=== PATIENT | male | born 1975 | race Caucasian/White ===

== ENCOUNTER 2017-09-01 08:28 | Inpatient (IN) | payer OTHER ==
[~2017-09-01] VITALS: Ht 188 cm; Wt 117.5 kg
[~2017-09-01 08:28] MED LIST: Levaquin500 MG PO
[2017-09-01 09:49] LABS: BASOPHILS PERCENT AUTO 1 % (0-2); EOSINOPHILS PERCENT AUTO 2 % (0-6); Hematocrit 47.3 % (37.0-53.0); Hemoglobin 16.3 g/dL (13.5-17.5); IMMATURE GRAN ABSOLUTE AUTO 0.06 K/mm3 (0.00-0.10); IMMATURE GRAN PERCENT AUTO 1 % (0-1); LYMPHOCYTES ABSOLUTE AUTO 3.61 K/mm3 (0.84-5.20); LYMPHOCYTES PERCENT AUTO 29 % (21-46); MONOCYTES ABSOLUTE AUTO 1.39 K/mm3 (0.16-1.47); MONOCYTES PERCENT AUTO 11 % (4-13); Mean Corpuscular HGB 30.2 pg (26.0-34.0); Mean Corpuscular HGB Conc 34.5 g/dL (31.5-36.5); Mean Corpuscular Volume 88 fL (80-100); Mean Platelet Volume 11.2 fL (9.1-12.4); NEUTROPHILS ABSOLUTE AUTO 7.06 K/mm3 (1.96-9.15); NEUTROPHILS PERCENT AUTO 56 % (41-73); Platelet Count 354 K/mm3 (150-400); RDW Coefficient Variation 13.1 % (11.7-14.2); RDW Standard Deviation 41.9 fL (35.1-46.3); White Blood Cell Count 12.52 K/mm3 (4.00-11.30)
[2017-09-01 10:00] LABS: International Normalized Ratio 1.07; Prothrombin Time Results 11.1 Sec (9.7-11.5)
[2017-09-01 10:07] LABS: Alanine Aminotransfer (ALT/SGP 28 U/L (12-78); Albumin, Blood 4.1 g/dL (3.4-5.0); Albumin/Globulin Ratio 1.2 (0.8-1.8); Alk Phos 57 U/L (50-136); Anion Gap 10 mmol/L (6-16); Aspartate Aminotrans (AST/SGOT 29 U/L (12-37); Bilirubin, Total 1.5 mg/dL (0.1-1.0); Blood Urea Nitrogen 14 mg/dL (8-24); Bun/Creatinine Ratio 14.2 (12.0-20.0); CO2, Blood 22 mmol/L (21-32); Calcium, Blood 9.1 mg/dL (8.5-10.1); Chloride, Blood 105 mmol/L (98-108); Creatinine, Blood 0.98 mg/dL (0.60-1.20); Globulin, Blood 3.4 g/dL (2.2-4.0); Glomerular Filtration Rate >60 (60-); Glucose, Blood 113 mg/dL (70-99); Potassium, Blood 3.6 mmol/L (3.5-5.5); Sodium, Blood 137 mmol/L (136-145); Total Protein, Blood 7.5 g/dL (6.4-8.2)
[2017-09-01 13:09] LABS: U Amphetamine Screen Not Detected; U Barbituate Screen Not Detected; U Benzodiazapine Screen Not Detected; U Buprenorphine Screen Not Detected; U Cannabinoids Screen Not Detected; U Cocaine Screen Not Detected; U Methadone Screen Not Detected; U Methamphetamine Screen DETECTED; U Opiates Screen Not Detected; U Oxycodone Screen Not Detected; U Phencyclidine Screen Not Detected; U Propoxyphene Screen Not Detected
[2017-09-01 13:12] LABS: PCO2 Arterial 44.2 mmHg (35-45); PO2 Arterial 124 mmHg (80-100); pH Blood Arterial 7.35 (7.35-7.45)
[2017-09-02 04:28] LABS: BASOPHILS ABSOLUTE AUTO 0.03 K/mm3 (0.00-0.23); BASOPHILS PERCENT AUTO 0 % (0-2); EOSINOPHILS ABSOLUTE AUTO 0.08 K/mm3 (0.00-0.68); EOSINOPHILS PERCENT AUTO 1 % (0-6); Hematocrit 43.6 % (37.0-53.0); Hemoglobin 14.7 g/dL (13.5-17.5); IMMATURE GRAN ABSOLUTE AUTO 0.05 K/mm3 (0.00-0.10); IMMATURE GRAN PERCENT AUTO 0 % (0-1); LYMPHOCYTES ABSOLUTE AUTO 1.12 K/mm3 (0.84-5.20); LYMPHOCYTES PERCENT AUTO 7 % (21-46); MONOCYTES ABSOLUTE AUTO 1.33 K/mm3 (0.16-1.47); MONOCYTES PERCENT AUTO 9 % (4-13); Mean Corpuscular HGB 29.9 pg (26.0-34.0); Mean Corpuscular HGB Conc 33.7 g/dL (31.5-36.5); Mean Corpuscular Volume 89 fL (80-100); Mean Platelet Volume 10.3 fL (9.1-12.4); NEUTROPHILS ABSOLUTE AUTO 12.56 K/mm3 (1.96-9.15); NEUTROPHILS PERCENT AUTO 83 % (41-73); Platelet Count 319 K/mm3 (150-400); RDW Coefficient Variation 13.3 % (11.7-14.2); RDW Standard Deviation 43.3 fL (35.1-46.3); Red Blood Cell Count 4.91 M/mm3 (4.30-5.90); White Blood Cell Count 15.17 K/mm3 (4.00-11.30)
[2017-09-02 04:45] LABS: Anion Gap 6 mmol/L (6-16); Blood Urea Nitrogen 10 mg/dL (8-24); CO2, Blood 24 mmol/L (21-32); Calcium, Blood 8.3 mg/dL (8.5-10.1); Chloride, Blood 109 mmol/L (98-108); Creatinine, Blood 1.11 mg/dL (0.60-1.20); Glomerular Filtration Rate >60 (60-); Glucose, Blood 123 mg/dL (70-99); Magnesium, Blood 2.1 mg/dL (1.6-2.4); Phosphorus, Blood 2.6 mg/dL (2.5-4.9); Potassium, Blood 4.2 mmol/L (3.5-5.5); Sodium, Blood 139 mmol/L (136-145)
[2017-09-02 05:33] LABS: PCO2 Arterial 33.6 mmHg (35-45); PO2 Arterial 57.2 mmHg (80-100); pH Blood Arterial 7.43 (7.35-7.45)
[2017-09-03 04:23] LABS: International Normalized Ratio 1.07; Prothrombin Time Results 11.2 Sec (9.7-11.5)
[2017-09-03 10:11] LABS: U Amphetamine Screen Not Detected; U Barbituate Screen Not Detected; U Benzodiazapine Screen DETECTED; U Buprenorphine Screen Not Detected; U Cannabinoids Screen Not Detected; U Cocaine Screen Not Detected; U Methadone Screen Not Detected; U Methamphetamine Screen Not Detected; U Opiates Screen Not Detected; U Oxycodone Screen Not Detected; U Phencyclidine Screen Not Detected; U Propoxyphene Screen Not Detected
[2017-09-03] MEDS ORDERED: ASPI325 PO (10:41)
[2017-09-03] MEDS ORDERED: CLOP75 PO (10:42)
[2017-09-03] MEDS ORDERED: ATOR40TA PO (10:42)
[2017-09-03] MEDS ORDERED: Lisinopril2.5 MG PO (10:44)
[2017-09-03] MEDS ORDERED: METO25 PO (10:45)
[2017-09-03] MEDS ORDERED: XARELTO20 MG PO (10:46)
[2017-09-10 11:08] LABS: 7-AMINOCLONAZEPAM Negative (.); ALPRAZOLAM Negative (.); BENZODIAZEPINES CONFIRM Positive (.); CHLORDIAZEPOXIDE Negative (.); CLONAZEPAM Negative (.); DESALKYLFLURAZEPAM Negative (.); DESMETHYLCHLORDIAZEPOXIDE Negative (.); DESMETHYLDIAZEPAM Negative (.); DIAZEPAM Negative (.); FLURAZEPAM Negative (.); LORAZEPAM Negative (.); MIDAZOLAM 12 ng/mL (.); OXAZEPAM Negative (.); TEMAZEPAM Negative (.); TRIAZOLAM Negative (.)
== END 2017-09-03 11:36 | disposition home or self-care (01) | DRG 248 ==
LOC: ER 08:28 → ICUW 09:40
PROVIDERS: Emergency Medicine; Hospitalist; Internal Medicine Critical Care Medicine; Internal Medicine Interventional Cardiology; Pharmacist
PROC: 02703D6 Dilation of Coronary Artery, One Artery, Bifurcation, with Intraluminal Device, Percutaneous Approach (ICD-10-PCS; principal; 2017-09-01)
PROC: 02703ZZ Dilation of Coronary Artery, One Artery, Percutaneous Approach (ICD-10-PCS; 2017-09-01)
PROC: 4A023N7 Measurement of Cardiac Sampling and Pressure, Left Heart, Percutaneous Approach (ICD-10-PCS; 2017-09-01)
PROC: B2111ZZ Fluoroscopy of Multiple Coronary Arteries using Low Osmolar Contrast (ICD-10-PCS; 2017-09-01)
PROC: 5A1935Z Respiratory Ventilation, Less than 24 Consecutive Hours (ICD-10-PCS; 2017-09-01)
PROC: 0BH17EZ Insertion of Endotracheal Airway into Trachea, Via Natural or Artificial Opening (ICD-10-PCS; 2017-09-01)
PROC: 5A2204Z Restoration of Cardiac Rhythm, Single (ICD-10-PCS; 2017-09-01)
PROC: 5A12012 Performance of Cardiac Output, Single, Manual (ICD-10-PCS; 2017-09-01)
DX: I21.09 ST elevation (STEMI) myocardial infarction involving other coronary artery of anterior wall (principal); I49.01 Ventricular fibrillation; J96.90 Respiratory failure, unspecified, unspecified whether with hypoxia or hypercapnia; I46.9 Cardiac arrest, cause unspecified; T82.855A Stenosis of coronary artery stent, initial encounter; I25.2 Old myocardial infarction; E66.9 Obesity, unspecified; F17.210 Nicotine dependence, cigarettes, uncomplicated; E78.5 Hyperlipidemia, unspecified; I10 Essential (primary) hypertension; I25.5 Ischemic cardiomyopathy; I25.10 Atherosclerotic heart disease of native coronary artery without angina pectoris; Z68.33 Body mass index [BMI] 33.0-33.9, adult
CPT/HCPCS: 31500; 31720; 36415; 36556; 36600; 51702; 71045; 80048; 80053; 82803; 83735; 84100; 84484; 85025; 85347; 85610; 85730; 92941; 92950; 92978; 92979; 93005; 93010; 93306; 93454; 94002; 94003; 96374; 96375; 99152; 99153; 99291; C1725; C1751; C1753; C1769; C1876; C1894; C9606; G0480; J0171; J0282; J0330; J0690; J1644; J1650; J2060; J2250; J3010; J3246; J3475; J7030; J7070; Q9967

== ENCOUNTER 2019-05-26 12:54 | Emergency (ER) | payer OTHER ==
[~2019-05-26] VITALS: Ht 180.3 cm; Wt 115.7 kg
[~2019-05-26 12:54] MED LIST changes: +ASPI325 PO; +ASPI81CH PO; +ATOR40TA PO; +CLOP75 PO; +ELIQUIS5 MG PO; +LISI5 PO; +Lisinopril2.5 MG PO; +METO25 PO; +XARELTO20 MG PO
[2019-05-27 04:07] LABS: HCV ANTIBODY >11.0 (0.0-0.9); HIV SCREEN 4TH GENERATION WRFX Non Reactive (Non Reactive)
== END 2019-05-26 14:18 | disposition home or self-care (01) ==
LOC: ER 12:54
PROVIDERS: Physician Assistant
DX: S61.231A Puncture wound without foreign body of left index finger without damage to nail, initial encounter (principal); I25.2 Old myocardial infarction; Z79.82 Long term (current) use of aspirin; Z79.899 Other long term (current) drug therapy; F17.200 Nicotine dependence, unspecified, uncomplicated; W26.8XXA Contact with other sharp object(s), not elsewhere classified, initial encounter
CPT/HCPCS: 84460; 86317; 86803; 87389; 99282

== ENCOUNTER 2020-03-27 06:42 | Emergency (ER) | payer OTHER ==
[~2020-03-27] VITALS: Ht 180.3 cm; Wt 120.2 kg
[2020-03-27 07:43] LABS: BASOPHILS ABSOLUTE AUTO 0.09 K/mm3 (0.00-0.23); BASOPHILS PERCENT AUTO 1 % (0-2); EOSINOPHILS ABSOLUTE AUTO 0.35 K/mm3 (0.00-0.68); EOSINOPHILS PERCENT AUTO 3 % (0-6); Hematocrit 44.3 % (37.0-53.0); Hemoglobin 14.8 g/dL (13.5-17.5); IMMATURE GRAN ABSOLUTE AUTO 0.08 K/mm3 (0.00-0.10); IMMATURE GRAN PERCENT AUTO 1 % (0-1); LYMPHOCYTES ABSOLUTE AUTO 1.98 K/mm3 (0.84-5.20); LYMPHOCYTES PERCENT AUTO 16 % (21-46); MONOCYTES PERCENT AUTO 11 % (4-13); Mean Corpuscular HGB 30.3 pg (26.0-34.0); Mean Corpuscular HGB Conc 33.4 g/dL (31.5-36.5); Mean Corpuscular Volume 91 fL (80-100); NEUTROPHILS ABSOLUTE AUTO 8.63 K/mm3 (1.96-9.15); NEUTROPHILS PERCENT AUTO 70 % (41-73); Platelet Count 331 K/mm3 (150-400); RDW Coefficient Variation 12.1 % (11.7-14.2); Red Blood Cell Count 4.89 M/mm3 (4.30-5.90); White Blood Cell Count 12.43 K/mm3 (4.00-11.30)
[2020-03-27 08:02] LABS: Alanine Aminotransfer (ALT/SGP 36 U/L (12-78); Albumin, Blood 3.7 g/dL (3.4-5.0); Albumin/Globulin Ratio 1.1 (0.8-1.8); Alk Phos 60 U/L (50-136); Anion Gap 6 mmol/L (6-16); Aspartate Aminotrans (AST/SGOT 31 U/L (12-37); Bilirubin, Total 0.7 mg/dL (0.1-1.0); Blood Urea Nitrogen 18 mg/dL (8-24); Bun/Creatinine Ratio 18.6 (12.0-20.0); CO2, Blood 24 mmol/L (21-32); Calcium, Blood 8.7 mg/dL (8.5-10.1); Chloride, Blood 109 mmol/L (98-108); Creatinine, Blood 0.97 mg/dL (0.60-1.20); Globulin, Blood 3.4 g/dL (2.2-4.0); Glomerular Filtration Rate >60 (60-); Glucose, Blood 129 mg/dL (70-99); Potassium, Blood 5.1 mmol/L (3.5-5.5); Sodium, Blood 139 mmol/L (136-145); Total Protein, Blood 7.1 g/dL (6.4-8.2)
[2020-03-27 09:06] LABS: Source, Urine Clean Catch
[2020-03-27 09:11] LABS: Appearance, Urine Cloudy (Clear); Blood, Urine 5+ (Neg); Color, Urine Yellow (P-Yellow); Glucose Qualitative, Urine Neg (Neg); Ketones, Urine 1+ (Neg); Leukocyte Esterase, Urine 1+ (Neg); Nitrite, Urine Neg (Neg); Protein, Urine 3+ (Neg); Urobilinogen, Urine 1+ (Normal)
[2020-03-27 09:24] LABS: Bilirubin, Urine 1+ (Neg)
[2020-03-27 09:26] LABS: Amorphous Light (0-Heavy); Bacteria Mod /hpf; Calcium Oxalate Crystals Mod /hpf; Mucus Mod (0-Heavy); Red Blood Cells, Urine TNTC /hpf (0-2); Squamous Epithelial Cells Rare /hpf (Few)
[2020-03-27] MEDS ORDERED: OXYC5 PO (10:50)
[2020-03-27] MEDS ORDERED: TAMS.4ER PO (10:50)
== END 2020-03-27 11:17 | disposition home or self-care (01) ==
LOC: ER 06:42
PROVIDERS: Emergency Medicine
DX: N13.2 Hydronephrosis with renal and ureteral calculous obstruction (principal); Z79.01 Long term (current) use of anticoagulants; Z79.82 Long term (current) use of aspirin; Z79.02 Long term (current) use of antithrombotics/antiplatelets; Z79.899 Other long term (current) drug therapy
CPT/HCPCS: 36415; 74176; 80053; 81001; 83690; 85025; 87086; 96365; 96375; 96376; 99284-25; J0696; J1170; J1885; J2405; J7120

== ENCOUNTER 2020-04-05 18:45 | Emergency (ER) | payer OTHER ==
[~2020-04-05] VITALS: Ht 180.3 cm; Wt 119.8 kg
[~2020-04-05 18:45] MED LIST changes: +OXYC5 PO; +TAMS.4ER PO
[2020-04-05 19:16] LABS: BASOPHILS ABSOLUTE AUTO 0.08 K/mm3 (0.00-0.23); BASOPHILS PERCENT AUTO 1 % (0-2); EOSINOPHILS ABSOLUTE AUTO 0.39 K/mm3 (0.00-0.68); EOSINOPHILS PERCENT AUTO 5 % (0-6); Hematocrit 44.4 % (37.0-53.0); Hemoglobin 14.9 g/dL (13.5-17.5); IMMATURE GRAN ABSOLUTE AUTO 0.05 K/mm3 (0.00-0.10); IMMATURE GRAN PERCENT AUTO 1 % (0-1); LYMPHOCYTES PERCENT AUTO 27 % (21-46); MONOCYTES ABSOLUTE AUTO 0.82 K/mm3 (0.16-1.47); MONOCYTES PERCENT AUTO 10 % (4-13); Mean Corpuscular HGB 30.7 pg (26.0-34.0); Mean Corpuscular HGB Conc 33.6 g/dL (31.5-36.5); Mean Corpuscular Volume 92 fL (80-100); Mean Platelet Volume 10.3 fL (9.1-12.4); NEUTROPHILS PERCENT AUTO 57 % (41-73); Platelet Count 276 K/mm3 (150-400); RDW Coefficient Variation 12.5 % (11.7-14.2); RDW Standard Deviation 41.7 fL (35.1-46.3); Red Blood Cell Count 4.85 M/mm3 (4.30-5.90); White Blood Cell Count 8.24 K/mm3 (4.00-11.30)
[2020-04-05 19:33] LABS: Alanine Aminotransfer (ALT/SGP 31 U/L (12-78); Albumin, Blood 3.8 g/dL (3.4-5.0); Albumin/Globulin Ratio 1.2 (0.8-1.8); Alk Phos 56 U/L (50-136); Anion Gap 9 mmol/L (6-16); Aspartate Aminotrans (AST/SGOT 18 U/L (12-37); Bilirubin, Total 0.6 mg/dL (0.1-1.0); Blood Urea Nitrogen 17 mg/dL (8-24); Bun/Creatinine Ratio 21.8 (12.0-20.0); CO2, Blood 23 mmol/L (21-32); Calcium, Blood 9.1 mg/dL (8.5-10.1); Chloride, Blood 107 mmol/L (98-108); Creatinine, Blood 0.78 mg/dL (0.60-1.20); Globulin, Blood 3.1 g/dL (2.2-4.0); Glomerular Filtration Rate >60 (60-); Glucose, Blood 180 mg/dL (70-99); Potassium, Blood 3.9 mmol/L (3.5-5.5); Sodium, Blood 139 mmol/L (136-145); Total Protein, Blood 6.9 g/dL (6.4-8.2)
[2020-04-05 21:06] LABS: Source, Urine Clean Catch
[2020-04-05 21:11] LABS: Bilirubin, Urine Neg (Neg); Blood, Urine 1+ (Neg); Glucose Qualitative, Urine Neg (Neg); Ketones, Urine 1+ (Neg); Leukocyte Esterase, Urine Neg (Neg); Nitrite, Urine Neg (Neg); Protein, Urine Neg (Neg); Urobilinogen, Urine NORM (Normal)
[2020-04-05 21:15] LABS: Appearance, Urine Clear (Clear); Color, Urine Yellow (P-Yellow)
[2020-04-05 21:29] LABS: Bacteria Few /hpf; Mucus Light (0-Heavy); Red Blood Cells, Urine 0-2 /hpf (0-2); Squamous Epithelial Cells Not Seen /hpf (Few); White Blood Cells, Urine 0-2 /hpf (0-5)
== END 2020-04-05 23:57 | disposition home or self-care (01) ==
LOC: ER 18:45
PROVIDERS: Physician Assistant
DX: R10.9 Unspecified abdominal pain (principal); I25.2 Old myocardial infarction; F17.210 Nicotine dependence, cigarettes, uncomplicated; Z79.01 Long term (current) use of anticoagulants; Z79.82 Long term (current) use of aspirin; Z79.02 Long term (current) use of antithrombotics/antiplatelets; Z79.899 Other long term (current) drug therapy; Z87.442 Personal history of urinary calculi; Z95.5 Presence of coronary angioplasty implant and graft
CPT/HCPCS: 36415; 76770; 80053; 81001; 83690; 85025; 96374; 96375; 99284-25; J1885; J2405; J7030

== ENCOUNTER 2020-12-06 15:11 | Emergency (ER) | payer OTHER ==
[~2020-12-06] VITALS: Ht 180.3 cm; Wt 115.2 kg
[2020-12-06 17:51] LABS: BASOPHILS PERCENT AUTO 1 % (0-2); EOSINOPHILS ABSOLUTE AUTO 0.45 K/mm3 (0.00-0.68); EOSINOPHILS PERCENT AUTO 4 % (0-6); Hematocrit 45.1 % (37.0-53.0); Hemoglobin 15.4 g/dL (13.5-17.5); IMMATURE GRAN ABSOLUTE AUTO 0.06 K/mm3 (0.00-0.10); IMMATURE GRAN PERCENT AUTO 1 % (0-1); LYMPHOCYTES PERCENT AUTO 25 % (21-46); MONOCYTES ABSOLUTE AUTO 0.97 K/mm3 (0.16-1.47); MONOCYTES PERCENT AUTO 9 % (4-13); Mean Corpuscular HGB 30.8 pg (26.0-34.0); Mean Corpuscular HGB Conc 34.1 g/dL (31.5-36.5); Mean Corpuscular Volume 90 fL (80-100); Mean Platelet Volume 10.4 fL (9.1-12.4); NEUTROPHILS ABSOLUTE AUTO 6.57 K/mm3 (1.96-9.15); NEUTROPHILS PERCENT AUTO 61 % (41-73); Platelet Count 304 K/mm3 (150-400); RDW Coefficient Variation 12.4 % (11.7-14.2); RDW Standard Deviation 41.1 fL (35.1-46.3); White Blood Cell Count 10.85 K/mm3 (4.00-11.30)
[2020-12-06 18:13] LABS: Alanine Aminotransfer (ALT/SGP 31 U/L (12-78); Albumin, Blood 4.1 g/dL (3.4-5.0); Albumin/Globulin Ratio 1.2 (0.8-1.8); Alk Phos 65 U/L (50-136); Anion Gap 6 mmol/L (6-16); Aspartate Aminotrans (AST/SGOT 19 U/L (12-37); Bilirubin, Total 0.9 mg/dL (0.1-1.0); Blood Urea Nitrogen 14 mg/dL (8-24); Bun/Creatinine Ratio 16.1 (12.0-20.0); CO2, Blood 25 mmol/L (21-32); Calcium, Blood 9.5 mg/dL (8.5-10.1); Chloride, Blood 109 mmol/L (98-108); Creatinine, Blood 0.87 mg/dL (0.60-1.20); Globulin, Blood 3.5 g/dL (2.2-4.0); Glomerular Filtration Rate >60 (60-); Glucose, Blood 85 mg/dL (70-99); Potassium, Blood 4.2 mmol/L (3.5-5.5); Sodium, Blood 140 mmol/L (136-145); Total Protein, Blood 7.6 g/dL (6.4-8.2); Troponin I <0.015 ng/mL (0.000-0.040)
== END 2020-12-06 22:28 | disposition home or self-care (01) ==
LOC: ER 15:11
PROVIDERS: Physician Assistant
DX: R07.9 Chest pain, unspecified (principal); I50.9 Heart failure, unspecified; I25.2 Old myocardial infarction; R68.84 Jaw pain; F17.210 Nicotine dependence, cigarettes, uncomplicated; Z95.5 Presence of coronary angioplasty implant and graft; Z79.01 Long term (current) use of anticoagulants; Z79.02 Long term (current) use of antithrombotics/antiplatelets; Z79.82 Long term (current) use of aspirin; Z79.899 Other long term (current) drug therapy
CPT/HCPCS: 36415; 71046; 80053; 84484; 85025; 93005; 93010; 99285-25

== ENCOUNTER 2020-12-17 09:42 | Emergency (ER) | payer OTHER ==
[~2020-12-17] VITALS: Ht 182.9 cm; Wt 116.1 kg
[2020-12-17 10:19] LABS: BASOPHILS ABSOLUTE AUTO 0.09 K/mm3 (0.00-0.23); BASOPHILS PERCENT AUTO 1 % (0-2); EOSINOPHILS PERCENT AUTO 4 % (0-6); Hematocrit 46.3 % (37.0-53.0); Hemoglobin 15.9 g/dL (13.5-17.5); IMMATURE GRAN ABSOLUTE AUTO 0.06 K/mm3 (0.00-0.10); IMMATURE GRAN PERCENT AUTO 1 % (0-1); LYMPHOCYTES ABSOLUTE AUTO 2.82 K/mm3 (0.84-5.20); LYMPHOCYTES PERCENT AUTO 23 % (21-46); MONOCYTES ABSOLUTE AUTO 0.84 K/mm3 (0.16-1.47); MONOCYTES PERCENT AUTO 7 % (4-13); Mean Corpuscular HGB 30.9 pg (26.0-34.0); Mean Corpuscular HGB Conc 34.3 g/dL (31.5-36.5); Mean Corpuscular Volume 90 fL (80-100); Mean Platelet Volume 10.1 fL (9.1-12.4); NEUTROPHILS ABSOLUTE AUTO 8.19 K/mm3 (1.96-9.15); NEUTROPHILS PERCENT AUTO 66 % (41-73); Platelet Count 361 K/mm3 (150-400); RDW Coefficient Variation 12.3 % (11.7-14.2); RDW Standard Deviation 40.4 fL (35.1-46.3); Red Blood Cell Count 5.14 M/mm3 (4.30-5.90)
[2020-12-17 10:24] LABS: Alanine Aminotransfer (ALT/SGP 31 U/L (12-78); Albumin/Globulin Ratio 1.1 (0.8-1.8); Alk Phos 60 U/L (50-136); Anion Gap 6 mmol/L (6-16); Aspartate Aminotrans (AST/SGOT 29 U/L (12-37); Bilirubin, Total 0.7 mg/dL (0.1-1.0); Blood Urea Nitrogen 16 mg/dL (8-24); Bun/Creatinine Ratio 16.9 (12.0-20.0); CO2, Blood 23 mmol/L (21-32); Calcium, Blood 9.3 mg/dL (8.5-10.1); Chloride, Blood 110 mmol/L (98-108); Creatinine, Blood 0.94 mg/dL (0.60-1.20); Globulin, Blood 3.6 g/dL (2.2-4.0); Glomerular Filtration Rate >60 (60-); Glucose, Blood 77 mg/dL (70-99); Potassium, Blood 4.4 mmol/L (3.5-5.5); Sodium, Blood 139 mmol/L (136-145); Total Protein, Blood 7.6 g/dL (6.4-8.2); Troponin I 0.031 ng/mL (0.000-0.040)
== END 2020-12-17 14:45 | disposition home or self-care (01) ==
LOC: ER 09:42
PROVIDERS: Physician Assistant
DX: R07.9 Chest pain, unspecified (principal); I25.2 Old myocardial infarction; F17.210 Nicotine dependence, cigarettes, uncomplicated; Z87.898 Personal history of other specified conditions; Z95.5 Presence of coronary angioplasty implant and graft
CPT/HCPCS: 36415; 71046; 80053; 83690; 83880; 84484; 85025; 93005; 93010; 99285-25; A9270

== ENCOUNTER 2021-08-19 16:22 | Inpatient (IN) | payer OTHER ==
[~2021-08-19] VITALS: Ht 182.9 cm; Wt 115.9 kg
[2021-08-19 16:40] LABS: Calcium, Ionized (POC) 1.08 mmol/L (1.10-1.46); Chloride (POC) 102 mmol/L (98-108); Creatinine (POC) 1.4 mg/dL (0.8-1.3); Glucose (ISTAT POC) 306 mg/dL (70-99); Hemoglobin (POC) 15.3 g/dL (13.5-17.5); Sodium (POC) 137 mmol/L (135-148); Total CO2 (POC) 18 mmol/L (21-32)
[2021-08-19 16:44] LABS: Hematocrit 46.1 % (37.0-53.0); Hemoglobin 14.8 g/dL (13.5-17.5); Mean Corpuscular HGB Conc 32.1 g/dL (31.5-36.5); Mean Corpuscular Volume 97 fL (80-100); Mean Platelet Volume 10.4 fL (9.1-12.4); NRBC ABSOLUTE 0.02 K/mm3 (0.00-0.02); NRBC Auto 0.1 /100 WBC (0.0-0.2); Platelet Count 320 K/mm3 (150-400); RDW Coefficient Variation 12.3 % (11.7-14.2); RDW Standard Deviation 44.3 fL (35.1-46.3); Red Blood Cell Count 4.77 M/mm3 (4.30-5.90); White Blood Cell Count 15.33 K/mm3 (4.00-11.30)
[2021-08-19 17:00] LABS: International Normalized Ratio 1.09; Prothrombin Time Results 11.4 Sec (9.7-11.5)
[2021-08-19 17:03] LABS: BAND PERCENT MAN 2 % (0-8); BASOPHILS ABSOLUTE MAN 0.15 K/mm3 (0.00-0.23); BASOPHILS PERCENT MAN 1 % (0-2); EOSINOPHILS ABSOLUTE MAN 0.45 K/mm3 (0.00-0.68); EOSINOPHILS PERCENT MAN 3 % (0-6); LYMPHOCYTES ABSOLUTE MAN 6.28 K/mm3 (0.84-5.20); LYMPHOCYTES PERCENT MAN 41 % (21-46); METAMYELOCYTE PERCENT MAN 2 % (0-0); MONOCYTES ABSOLUTE MAN 0.76 K/mm3 (0.16-1.47); MONOCYTES PERCENT MAN 5 % (4-13); NEUTROPHILS ABSOLUTE MAN 7.35 K/mm3 (1.96-9.15); SEG NEUTROPHILS PERCENT MAN 46 % (41-73); TOTAL CELLS COUNTED 100
[2021-08-19 17:04] LABS: Albumin, Blood 3.6 g/dL (3.4-5.0); Albumin/Globulin Ratio 1.3 (0.8-1.8); Bilirubin, Total 0.6 mg/dL (0.1-1.0); Bun/Creatinine Ratio 10.4 (12.0-20.0); Calcium, Blood 8.5 mg/dL (8.5-10.1); Creatinine, Blood 1.35 mg/dL (0.60-1.20); Globulin, Blood 2.7 g/dL (2.2-4.0); Magnesium, Blood 2.4 mg/dL (1.6-2.4); Potassium, Blood 3.7 mmol/L (3.5-5.5); Total Protein, Blood 6.3 g/dL (6.4-8.2)
[2021-08-19 17:13] LABS: PCO2 Arterial 65.9 mmHg (35-45); PO2 Arterial 244 mmHg (80-100); pH Blood Arterial 7.12 (7.35-7.45)
[2021-08-19] MEDS ORDERED: METF500 PO (19:19)
[2021-08-19] MEDS ORDERED: EZETIMIBE10 M6 PO (19:19)
[2021-08-19 19:26] LABS: U Amphetamine Screen Not Detected; U Barbituate Screen Not Detected; U Benzodiazapine Screen Not Detected; U Buprenorphine Screen Not Detected; U Cannabinoids Screen DETECTED; U Cocaine Screen Not Detected; U Methadone Screen Not Detected; U Methamphetamine Screen Not Detected; U Opiates Screen Not Detected; U Oxycodone Screen Not Detected; U Phencyclidine Screen Not Detected; U Propoxyphene Screen Not Detected
[2021-08-19 20:39] LABS: Source, Urine Foley catheter
--- NOTE | 2021-08-19 21:00 | NUR ---
PT ARRIVES TO ROOM ICU 7 AT 19:40. SLIDE TRANSFERRED TO BED. PT INTUBATED. DR HODGE IN TO SEE PT. ORDERS BEING RECEIVED. PT REMOVED FROM SEDATION AND NOTED TO BE NON RESPONSIVE EVEN TO STERNAL RUB. NOTED POSTERING FROM UPPER AND LOWER EXTREMITES. ORDER FOR NIMBEX DRIP. KEPPRA FOR SEIZURE TYPE ACTIVITIES. DR HODGE TO PLACE COOLING CATHETER. PT'S SONS AND PT'S FIANCE TO ROOM. UPDATE GIVEN BY DR HODGE. WILL REVIEW CHART AND PLAN OF CARE FOR PT.
[2021-08-19 21:02] LABS: BASOPHILS PERCENT AUTO 1 % (0-2); EOSINOPHILS ABSOLUTE AUTO 0.12 K/mm3 (0.00-0.68); EOSINOPHILS PERCENT AUTO 1 % (0-6); Hematocrit 52.2 % (37.0-53.0); Hemoglobin 17.2 g/dL (13.5-17.5); IMMATURE GRAN ABSOLUTE AUTO 0.22 K/mm3 (0.00-0.10); IMMATURE GRAN PERCENT AUTO 1 % (0-1); LYMPHOCYTES ABSOLUTE AUTO 1.63 K/mm3 (0.84-5.20); LYMPHOCYTES PERCENT AUTO 7 % (21-46); MONOCYTES ABSOLUTE AUTO 2.09 K/mm3 (0.16-1.47); MONOCYTES PERCENT AUTO 9 % (4-13); Mean Corpuscular HGB 30.8 pg (26.0-34.0); Mean Corpuscular Volume 93 fL (80-100); Mean Platelet Volume 9.9 fL (9.1-12.4); NEUTROPHILS ABSOLUTE AUTO 17.99 K/mm3 (1.96-9.15); NEUTROPHILS PERCENT AUTO 81 % (41-73); Platelet Count 374 K/mm3 (150-400); RDW Coefficient Variation 12.6 % (11.7-14.2); RDW Standard Deviation 43.1 fL (35.1-46.3); Red Blood Cell Count 5.59 M/mm3 (4.30-5.90); White Blood Cell Count 22.15 K/mm3 (4.00-11.30)
[2021-08-19 21:08] LABS: Bilirubin, Urine Neg (Neg); Blood, Urine 4+ (Neg); Glucose Qualitative, Urine 4+ (Neg); Ketones, Urine 1+ (Neg); Leukocyte Esterase, Urine Neg (Neg); Nitrite, Urine Neg (Neg); Protein, Urine 4+ (Neg); Urobilinogen, Urine NORM (Normal)
[2021-08-19 21:17] LABS: International Normalized Ratio 1.04; Prothrombin Time Results 10.9 Sec (9.7-11.5)
[2021-08-19 21:32] LABS: Alanine Aminotransfer (ALT/SGP 119 U/L (12-78); Albumin, Blood 4.4 g/dL (3.4-5.0); Albumin/Globulin Ratio 1.3 (0.8-1.8); Alk Phos 76 U/L (50-136); Anion Gap 5 mmol/L (6-16); Aspartate Aminotrans (AST/SGOT 154 U/L (12-37); Bilirubin, Total 0.9 mg/dL (0.1-1.0); Blood Urea Nitrogen 17 mg/dL (8-24); Bun/Creatinine Ratio 13.6 (12.0-20.0); CO2, Blood 28 mmol/L (21-32); Chloride, Blood 108 mmol/L (98-108); Creatinine, Blood 1.25 mg/dL (0.60-1.20); Globulin, Blood 3.4 g/dL (2.2-4.0); Glomerular Filtration Rate >60 (60-); Glucose, Blood 122 mg/dL (70-99); Magnesium, Blood 2.1 mg/dL (1.6-2.4); Potassium, Blood 5.1 mmol/L (3.5-5.5); Sodium, Blood 141 mmol/L (136-145); Total Protein, Blood 7.8 g/dL (6.4-8.2)
[2021-08-19 21:35] LABS: Appearance, Urine Cloudy (Clear); Color, Urine Yellow (P-Yellow)
[2021-08-19 21:37] LABS: Bacteria Many /hpf; Red Blood Cells, Urine 25-50 /hpf (0-2); Squamous Epithelial Cells Few /hpf (Few)
[2021-08-19 21:39] LABS: Amorphous Light (0-Heavy)
[2021-08-19 21:40] LABS: Hyaline Casts 0-2 /lpf (0-2)
[2021-08-19] MEDS ORDERED: ONE-A-DAY PRO200 MCG PO (23:34)
[2021-08-19] MEDS ORDERED: Loratadine10 MG PO (23:34)
--- NOTE | 2021-08-20 | NUR ---
PT COOLING IN PROCESS. NIMBEX TITRAED FROM 3 TO 2.5 WITH GOOD RESULTS. TRAIN OF FOUR 3/4 BIS MAINTAINS 30'S TO LOW 40'S. SINUS RHYTH WITH PVC'S NOTED. HAVE TITRAED PT FROM PROPOFOL 60 MCG'S/KG/MIN TO 30 MCG'S PER KG/MIN. PT INCONTINENT TO LOOSE STOOL. WILL CONTINUE TO MONITOR PT,
[2021-08-20 03:53] LABS: PCO2 Arterial 44.2 mmHg (35-45); pH Blood Arterial 7.29 (7.35-7.45)
[2021-08-20 03:54] LABS: PO2 Arterial 74.1 mmHg (80-100)
--- NOTE | 2021-08-20 04:57 | NUR ---
PT CONTINUES WITH NIMBEX DRIP AT 2.5, ABLE TO GAIN TRAIN OF 4. PROPOFOL AT 20 MCG'S/KG/MIN AND FENTANYL AT 50 MCG'S/HOUR FOR ADJUNCT AFFECT. BIS MONITORING REVEALS LOW 40 FOR SEDATION. PT MAINTAINS > 90 PERCENT SATURATION ON AC 18, Tv 550, FIO2 30 PERCENT, AND PEEP 5. PLACED OGT TO LIWS WITH RETURN OF SMALL AMOUNT OF LIQUID. PT'S FIANCE DID ROOM IN FOR THE NIGHT. WILL CONTINUE TO MONITOR, AND WILL REPORT OFF TO ONCOMING RN.
--- NOTE | 2021-08-20 07:45 | NUR ---
INITIAL ASSESSMENT PATIENT INTUBATED, SEDATED AND PARALZYED. PATIENT UNRESPONSIVE. TOF 0/4 AND BIS IN THE 30S. NIMBEX DECREASED FROM 2.5 TO 2 MCG/ KG/ MINUTE AND FENTANYL DECREASED FROM 50 TO 25 MCG/ HOUR. COOLING CATH IN PLACE; TEMP AT 96.8 DEGREES FAHRENHEIT. LUNGS WHEEZY IN UPPER LOBES. PATIENT ON AC 18, TV 550, PEEP 8 AND 30% FIO2. NO SPUTUM NOTED WITH SUCTIONING. PATIENT IN SR WITH FREQUENT PVCS. HR IN THE 60S. BP 134/109. PULSES FAINT. ABD SOFT, WITH HYPERACTIVE BOWEL SOUNDS NOTED. OG TO LIS. PATIENT HAS BEEN HAVING LOOSE, BROWN BMS. LOZANO IN PLACE DRAINING YELLOW, CLOUDY URINE WITH SEDIMENT NOTED. SCRAPES NOTED TO CHIN, NOSE AND L SIDE OF FOREHEAD; FIANCE STATED THAT SCRAPES ARE FROM CARDIAC ARREST EPISODE. NS AT 100 MLS/ HOUR. PROPOFO AT 20 MCG/ KG/ MINUTE. BED LOW. FIANCE AT BEDSIDE. WILL CONTINUE TO MONITOR PATIENT FREQUENTLY THROUGHOUT SHIFT.
--- NOTE | 2021-08-20 09:15 | NUR ---
DR. HODGE UPDATED ON PATIENT STATUS. INFORMED THAT TOF 0/4 AND BIS IN THE 30S THIS AM. INFORMED THAT NIMBEX DECREASED FROM 2.5 TO 2 MCG/ KG/ MINUTE AND THAT FENTANYL BRAKE DRUM LATHE OPERATOR DRIP DECREASED FROM 50 TO 25 MCG/ HOUR. INFORMED THAT TOF NOW 1/4 AND BIS IN THE 40S. INFORMED THAT PATIENT HAS BECOME HYPERTENSIVE AND THAT PATIENT IS NOW HAVING MORE ECTOPY. ORDERED TO PLACE NIMBEX ON SB.
--- NOTE | 2021-08-20 09:32 | NUR ---
DR. HODGE LOOKED AT 12 LEAD EKG. NO ORDERS RECEIVED.
--- NOTE | 2021-08-20 10:03 | NUR ---
DR. MORRISON INFORMED OF CONSULT AND UPDATED ON PATIENT AND CHANGES MADE THIS AM BY DR. HODGE. DR. MORRISON STATED HE WOULD BE IN TO SEE PATIENT LATER THIS AM.
[2021-08-20 10:22] LABS: BASOPHILS ABSOLUTE AUTO 0.02 K/mm3 (0.00-0.23); BASOPHILS PERCENT AUTO 0 % (0-2); EOSINOPHILS ABSOLUTE AUTO 0.05 K/mm3 (0.00-0.68); EOSINOPHILS PERCENT AUTO 0 % (0-6); Hematocrit 44.1 % (37.0-53.0); Hemoglobin 14.8 g/dL (13.5-17.5); IMMATURE GRAN ABSOLUTE AUTO 0.04 K/mm3 (0.00-0.10); IMMATURE GRAN PERCENT AUTO 0 % (0-1); LYMPHOCYTES ABSOLUTE AUTO 0.91 K/mm3 (0.84-5.20); LYMPHOCYTES PERCENT AUTO 8 % (21-46); MONOCYTES ABSOLUTE AUTO 1.11 K/mm3 (0.16-1.47); MONOCYTES PERCENT AUTO 9 % (4-13); Mean Corpuscular HGB Conc 33.6 g/dL (31.5-36.5); Mean Corpuscular Volume 93 fL (80-100); Mean Platelet Volume 10.3 fL (9.1-12.4); NEUTROPHILS ABSOLUTE AUTO 9.92 K/mm3 (1.96-9.15); NEUTROPHILS PERCENT AUTO 82 % (41-73); Platelet Count 220 K/mm3 (150-400); RDW Coefficient Variation 12.7 % (11.7-14.2); RDW Standard Deviation 43.4 fL (35.1-46.3); Red Blood Cell Count 4.77 M/mm3 (4.30-5.90); White Blood Cell Count 12.05 K/mm3 (4.00-11.30)
[2021-08-20 10:38] LABS: Alanine Aminotransfer (ALT/SGP 89 U/L (12-78); Albumin, Blood 3.2 g/dL (3.4-5.0); Albumin/Globulin Ratio 1.1 (0.8-1.8); Alk Phos 53 U/L (50-136); Anion Gap 4 mmol/L (6-16); Aspartate Aminotrans (AST/SGOT 98 U/L (12-37); Bilirubin, Total 0.6 mg/dL (0.1-1.0); Blood Urea Nitrogen 19 mg/dL (8-24); Bun/Creatinine Ratio 24.7 (12.0-20.0); CO2, Blood 25 mmol/L (21-32); Calcium, Blood 7.2 mg/dL (8.5-10.1); Chloride, Blood 111 mmol/L (98-108); Creatinine, Blood 0.77 mg/dL (0.60-1.20); Globulin, Blood 2.8 g/dL (2.2-4.0); Glomerular Filtration Rate >60 (60-); Glucose, Blood 148 mg/dL (70-99); Potassium, Blood 4.1 mmol/L (3.5-5.5); Sodium, Blood 140 mmol/L (136-145)
[2021-08-20 10:39] LABS: International Normalized Ratio 1.03; Prothrombin Time Results 10.8 Sec (9.7-11.5)
--- NOTE | 2021-08-20 10:41 | NUR ---
DR. HODGE INFORMED THAT PATIENT HAVING MUSCLE TWITCHING, HIGH PEAK ALARM ON VENT, AND APPEARS TO BE TRYING TO BREATH AGAINST VENT. DR. HODGE STATED TO PLACE PATIENT BACK ON NIMBEX.
--- NOTE | 2021-08-20 11:01 | NUR ---
DR. MORRISON HERE TO VISIT PATIENT AND SIGNIFICANT OTHER. DR. MORRISON UPDATED ON PATIENT STATUS. NO ORDERS RECEIVED AT THIS TIME.
--- NOTE | 2021-08-20 12:47 | NUR ---
PATIENT REMAINS INTUBATED. PATIENT TOF 4/4. NIMBEX INCREASED TO 3 MCG/ KG/ MINUTE. BIS HIGH 30S TO LOW 40S. PROPOFOL DECREASED FROM 30 TO 25 MCG/ KG/ MINUTE. SMALL AMOUNT OF THIN, YELLOW SPUTUM SUCTIONED FROM ETT. BLOOD SUGAR 110; NO COVERAGE INDICATED. SPOUSE AND SONS AT BEDSIDE.
--- NOTE | 2021-08-20 15:40 | NUR ---
DR. HODGE INFORMED THAT SBP UP TO 130S EVEN AFTER PRN HYDRALAZINE ADMINISTRATION. INFORMED THAT HR UP TO THE 120S AND THAT PATIENT HAVING MORE ECTOPY. DR. HODGE ORDERED FOR NICARDIPINE DRIP TO BE STARTED.
--- NOTE | 2021-08-20 16:25 | NUR ---
NITRO PASTE TAKEN OFF PATIENT CHEST PER DR. HODGE.
--- NOTE | 2021-08-20 16:49 | NUR ---
DR. MORRISON UPDATED ON PATIENT CONDITION/ STATUS.
--- NOTE | 2021-08-20 19:16 | NUR ---
SHIFT SUMMARY PATIENT REMAINED INTUBATED AND SEDATED. PATIENT PLACED ON SB FOR SHORT TIME BUT WAS RESTARTED SHORT TIME LATER FOR PATIENT CONSTANTLY COUGHING AGAINST VENT AND HAVING MUSCLE SPASMING. COOLING CATH REMAINED IN PLACE; 2100 TONIGHT IS 24 HOUR CAPRICE. PATIENT REMAINED ON AC 18, TV 550, PEEP 8 AND 30% FIO2. PATIENT HAS SMALL AMOUNT OF THIN, YELLOW SPUTUM OUT FROM ETT. PATIENT REMAINED WITH MUCH ECTOPY. AT ONE POINT ECTOPY INCREASED AND SBP UP TO 250S. AMIODARONE BOLUS AND DRIP GIVEN, 2 G MAG GIVEN, AND NITRO DRIP STARTED. ECTOPY HAS SLOWED DOWN A LITTLE. HR IMPROVED FROM 120S TO 90S. SBP IMPROVED AND IS NOW IN 150S. OG REMAINED TO LIS. PATIENT HAD 3 BROWN, LOOSE/ PASTY STOOLS THIS SHIFT. LOZANO DRAINED 795 MLS OF YELLOW, CLOUDY, SEDIMENT URINE. NO CHANGES TO SKIN NOTED. PATIENT REPOSITIONED Q2H. NS INFUSING AT 100 MLS/ HOUR, FENTANYL ACCOUNT GROUP SUPERVISOR AT 25 MCG/ HOUR, PROPOFOL AT 20 MCG/ KG/ MINUTE, NIMBEX 2.5 MCG/ KG/ MINUTE, NITRO AT 25 MCG/ MINUTE, AND AMIO AT 1 MG/ MINUTE. SCHEDULED NITRO AND METOPROL STARTED THIS SHIFT. ECHO PERFORMED. ARTERIAL LINE PLACED TO L AXILLI BY DR. HODGE. BLOOD SUGARS 110 TO 179. PATIENT'S AND 2 SONS IN ROOM FOR MOST OF THE DAY. BED LOW. REPORT HAS BEEN GIVEN TO ASSUMING FLIGHT OPERATION COORDINATOR NURSE.
--- NOTE | 2021-08-20 19:51 | NUR ---
ASSUMED PT CARE FROM JAYDA CRUZ PT INTUBATED, SEDATED, AND PARALYZED. VENT SETTINGS: AC/VC 18, VT 550, PEEP 8, FIO2 30%, RR 18, SPO2> 90%. NIMBEX AT 2.5MCG/KG/MIN, WHICH WAS TURNED DOWN TO 2MCG/KG/MIN D/T TOF 0/4 WITH ATTEMPTS MADE TO BILATERAL EYEBROWS, WELL R ULNAR NERVE. PROPOFOL AT 20MCG/KG/MIN AND FENTANYL AT 25MCG/HR WITH BIS RANGING 30-40. COOLING/CENTRAL LINE TO R GROIN WITH PT AT COOLING GOAL OF 96.8; GOAL IS TO INITIATE REWARMING AT 2100. PER DR[address] HODGE, KEEP PT PARALYZED T/O NIGHT AND WILL REASSESS FOR SEDATION VACATION IN THE AM. ART LINE TO LEFT AXILLARY, WHICH HAS BEEN ZERO'D AT PHLEBOSTATIC AXIS; BP GOAL IS TO MAINTAIN SYSTOLIC BETWEEN 150-170; NITRO GTT CURRENTLY AT 50MCG/MIN. PT IS NOTED TO BE IN A TACHY ARRHYTHMIA WITH FREQUENT AND MULTIPLE PVC'S, WELL SHORT, NON-SUSTAINED RUNS OF VTACH. AMIODARONE GTT AT 1MG/MIN. FIANCE AND SON AT BEDSIDE UPON ASSUMPTION OF CARE; HOWEVER, HAVE RECENTLY STEPPED OUT AND MAI STATES SHE WILL BE BACK. FAMILY VERY APPRECIATIVE AND COOPERATIVE WITH CARES. SEE SHIFT SUMMARY FOR FURTHER DETAILS.
[2021-08-20 21:09] LABS: BASOPHILS ABSOLUTE AUTO 0.04 K/mm3 (0.00-0.23); BASOPHILS PERCENT AUTO 0 % (0-2); EOSINOPHILS ABSOLUTE AUTO 0.06 K/mm3 (0.00-0.68); EOSINOPHILS PERCENT AUTO 0 % (0-6); Hematocrit 42.4 % (37.0-53.0); Hemoglobin 14.2 g/dL (13.5-17.5); IMMATURE GRAN ABSOLUTE AUTO 0.08 K/mm3 (0.00-0.10); IMMATURE GRAN PERCENT AUTO 1 % (0-1); LYMPHOCYTES ABSOLUTE AUTO 0.77 K/mm3 (0.84-5.20); LYMPHOCYTES PERCENT AUTO 5 % (21-46); MONOCYTES ABSOLUTE AUTO 1.47 K/mm3 (0.16-1.47); MONOCYTES PERCENT AUTO 9 % (4-13); Mean Corpuscular HGB 30.7 pg (26.0-34.0); Mean Corpuscular HGB Conc 33.5 g/dL (31.5-36.5); Mean Corpuscular Volume 92 fL (80-100); Mean Platelet Volume 10.4 fL (9.1-12.4); NEUTROPHILS ABSOLUTE AUTO 14.68 K/mm3 (1.96-9.15); NEUTROPHILS PERCENT AUTO 86 % (41-73); Platelet Count 239 K/mm3 (150-400); RDW Standard Deviation 43.8 fL (35.1-46.3); Red Blood Cell Count 4.62 M/mm3 (4.30-5.90)
--- NOTE | 2021-08-20 21:15 | NUR ---
REWARMING INTIIATED AT A RATE OF 0.54 DEGREES/HOUR WITH GOAL TEMP OF 98.0 DEGREES FAHRENHEIT
[2021-08-20 21:22] LABS: International Normalized Ratio 0.99; Prothrombin Time Results 10.4 Sec (9.7-11.5)
--- NOTE | 2021-08-20 21:27 | NUR ---
CALL OUT TO PT CONTINUES HAVING LONGER RUNS OF VTACH. PT WILL COME OUT OF THE RUN FOR A BEAT OR TWO BACK IN HIS NORMAL RHYTHM AND THEN BACK TO A RUN OF 8-10 BEATS OF VTACH. NEW ORDERS FOR A BOLUS OF LIDOCAINE AND CONTINUE AMIO GTT.
[2021-08-20 21:46] LABS: Alanine Aminotransfer (ALT/SGP 83 U/L (12-78); Albumin, Blood 3.1 g/dL (3.4-5.0); Albumin/Globulin Ratio 1.1 (0.8-1.8); Alk Phos 54 U/L (50-136); Anion Gap 5 mmol/L (6-16); Aspartate Aminotrans (AST/SGOT 82 U/L (12-37); Bilirubin, Total 0.6 mg/dL (0.1-1.0); Blood Urea Nitrogen 14 mg/dL (8-24); Bun/Creatinine Ratio 20.4 (12.0-20.0); CO2, Blood 24 mmol/L (21-32); Calcium, Blood 7.4 mg/dL (8.5-10.1); Chloride, Blood 108 mmol/L (98-108); Creatinine, Blood 0.69 mg/dL (0.60-1.20); Globulin, Blood 2.9 g/dL (2.2-4.0); Glomerular Filtration Rate >60 (60-); Glucose, Blood 213 mg/dL (70-99); Potassium, Blood 3.8 mmol/L (3.5-5.5); Sodium, Blood 137 mmol/L (136-145)
--- NOTE | 2021-08-20 21:58 | NUR ---
CALL OUT TO DR. MORRISON REGARDING LIDOCAINE BOLUS LIDOCAINE BOLUS EFFECTIVE WITH NEW ORDERS TO STOP AMIO GTT AND INTIAITE A LIDOCAINE GTT AT 2MG/MIN.
--- NOTE | 2021-08-20 23:43 | NUR ---
DR. HODGE NOTIFIED UPDATED REGARDING LIDOCAINE GTT INITIATION WITH A DROP IN HR AND BP. NITRO GTT CURRENTLY OFF WITH SBP 110-120'S. CLARIFIED NITRO GTT ORDER THAT HAD GOAL SBP 150-170; HOWEVER, DR. HODGE STATED THAT WAS THE GOAL DURING COOLING AND NOW THAT PT IS BEING REWARMED THAT BP GOAL IS NO LONGER DESIRED. NURSE NOTIFY ENTERED SUCH.
--- NOTE | 2021-08-21 03:29 | NUR ---
CALL MADE TO DR. PICKETT UPDATED REGARDING TRENDING UPWARD WBC WITH A "DIRTY" UA, COARSE/RHONCUS LUNG SOUNDS WITH NO ORDERS FOR ABO'S. DR. PICKETT REVIEWED CHART WITH ORDERS TO START 1G IV ROCEPHIN DAILY.
[2021-08-21 03:54] LABS: BASOPHILS ABSOLUTE AUTO 0.02 K/mm3 (0.00-0.23); BASOPHILS PERCENT AUTO 0 % (0-2); EOSINOPHILS ABSOLUTE AUTO 0.04 K/mm3 (0.00-0.68); EOSINOPHILS PERCENT AUTO 0 % (0-6); Hematocrit 42.1 % (37.0-53.0); Hemoglobin 13.9 g/dL (13.5-17.5); IMMATURE GRAN ABSOLUTE AUTO 0.04 K/mm3 (0.00-0.10); IMMATURE GRAN PERCENT AUTO 0 % (0-1); LYMPHOCYTES ABSOLUTE AUTO 0.91 K/mm3 (0.84-5.20); LYMPHOCYTES PERCENT AUTO 8 % (21-46); MONOCYTES ABSOLUTE AUTO 0.92 K/mm3 (0.16-1.47); MONOCYTES PERCENT AUTO 8 % (4-13); Mean Corpuscular HGB 30.4 pg (26.0-34.0); Mean Corpuscular Volume 92 fL (80-100); NEUTROPHILS ABSOLUTE AUTO 9.55 K/mm3 (1.96-9.15); NEUTROPHILS PERCENT AUTO 83 % (41-73); Platelet Count 199 K/mm3 (150-400); RDW Coefficient Variation 12.9 % (11.7-14.2); RDW Standard Deviation 43.6 fL (35.1-46.3); Red Blood Cell Count 4.57 M/mm3 (4.30-5.90); White Blood Cell Count 11.48 K/mm3 (4.00-11.30)
[2021-08-21 04:07] LABS: Alanine Aminotransfer (ALT/SGP 76 U/L (12-78); Albumin, Blood 2.9 g/dL (3.4-5.0); Alk Phos 54 U/L (50-136); Anion Gap 5 mmol/L (6-16); Aspartate Aminotrans (AST/SGOT 66 U/L (12-37); Bilirubin, Total 0.5 mg/dL (0.1-1.0); Blood Urea Nitrogen 10 mg/dL (8-24); Bun/Creatinine Ratio 14.2 (12.0-20.0); CO2, Blood 23 mmol/L (21-32); Calcium, Blood 7.5 mg/dL (8.5-10.1); Chloride, Blood 113 mmol/L (98-108); Globulin, Blood 2.9 g/dL (2.2-4.0); Glomerular Filtration Rate >60 (60-); Glucose, Blood 143 mg/dL (70-99); Potassium, Blood 4.2 mmol/L (3.5-5.5); Sodium, Blood 141 mmol/L (136-145); Total Protein, Blood 5.8 g/dL (6.4-8.2)
--- NOTE | 2021-08-21 05:43 | NUR ---
END OF SHIFT SUMMARY PT REMAINS INTUBATED, SEDATED, AND PARALYZED. VENT SETTINGS: AC/VC 18, VT 550, PEEP 8, FIO2 40%, RR 18, SPO2 >90%. PROPOFOL AT 25MCG/KG/MIN AND FENTANYL AT 50MCG/HR WITH BIS 40-50. NIMBEX AT 1.5MCG/KG/MIN WITH TOF 4/4 TO RIGHT EYEBROW. LIDOCAINE GTT REMAINS AT 2MG/MIN; RHYTHM NOTED TO BE SINUS WITH OCCASIONAL PVC'S; NO FURTHER RUNS OF VTACH. HR 60-70'S. NITRO GTT HAS REMAINED OFF MOST OF SHIFT D/T SBP'S 110-120'S, SEE FLOWSHEET. PT HAS BEEN PASSIVELY REWARMED WITH CURRENT TEMP 98.2. TEMP LOZANO CATHETER IS PATENT AND DRAINING DARK, TIMMY COLORED URINE TO GRAVITY WITH RED SEDIMENT NOTED IN TUBING. ART LINE REMAINS TO LEFT AXILLARY WITH GOOD PLETH AND DICROTIC NOTCH NOTED. PT'S SON AT BEDSIDE CURRENTLY; STAYED OVERNIGHT FOR PART OF THE NIGHT. FIANCE JUST ARRIVED TO BEDSIDE. WILL CONTINUE TO MONITOR UNTIL REPORT IS HANDED OFF TO ONCOMING RN.
--- NOTE | 2021-08-21 08:00 | NUR ---
INITIAL ASSESSMENT PATIENT INTUBATED, SEDATED AND PARALZYZED. TOF 4/4, BIS IN THE 40S. COOLING CATH SET AT 98.2 DEGREES FAHRENHEIT. PATIENT ON VENT AC 18, TV 550, PEEP 8 AND 40% FIO2. LUNGS COARSE AND WHEEZY. MODERATE AMOUNT OF THIN, YELLOW SPUTUM BEING SUCTIONED FROM ETT. PATIENT IN SR WITH PVCS. HR IN THE 60S. SBP IN THE 1-TEENS. DEPENDENT EDEMA NOTED. PULSES IN FEET ARE FAINT. ABD MODERATELY DISTENDED, SOFT, WITH HYPERACTIVE BOWEL SOUNDS NOTED. OG TO LIS. LOZANO DRAINING YELLOW, CLOUDY, SEDIMENT NOTED. SCRAPES NOTED TO CHIN, NOSE, AND L FOREHEAD. SCATTERED SCABS NOTED. L EYE BRUISED. NS AT 100 MLS/ HOUR, FENTANYL AT 50 MCG/ HOUR, PROPOFOL AT 25 MCG/ KG/ MINUTE, NIMBEX AT 1.5 MCG/ KG/ MINUTE, NITRO OFF, LIDOCAINE AT 2 MG/ MINUTE. FIANCE AT BEDSIDE.
--- NOTE | 2021-08-21 08:30 | NUR ---
DR. HODGE UPDATED ON PATIENT STATUS. INFORMED THAT PATIENT PLACED ON LIDOCAINE DRIP LAST NIGHT AND THAT IT IS WORKING MUCH BETTER FOR PATIENT ECTOPY THAN THE AMIODARONE DRIP WAS. INFORMED THAT COOLING CATH IN PLACE AND PATIENT WARMED TO 98.2 DEGREES FAHRENHEIT. INFORMED THAT ROCEPHIN STARTED ON SET ILLUSTRATOR. INFORMED THAT 300 MLS OUT OF OG OF UNDIGESTED FOOD. ORDERS RECEIVED TO START TF AND TO PLACE NIMBEX ON SB.
--- NOTE | 2021-08-21 10:20 | NUR ---
PROPOFOL INCREASED PATIENT CONTINUES TO GAG AND COUGH ON ETT AFTER NIMBEX PLACED ON SB. WILL CONTINUE TO MONITOR.
--- NOTE | 2021-08-21 13:00 | NUR ---
PATIENT INTUBATED, SEDATED, AND PARALYZED. NIMBEX TURNED OFF EARLIER BUT PATIENT UNABLE TO QUIT COUGHING. DR. CAMPO ORDERED TO PLACE BACK ON NIMBEX AND START SOLUMEDROL DAILY. LUNGS WHEEZY IN UPPER LOBES. PEEP INCREASED FROM 8 TO 10. HR 70S TO 80S. SBP IN THE LOW 100S. VHP TF STARTED AT GOAL RATE OF 25 MLS/ HOUR WITH 30 ML WATER FLUSH Q4H. BLOOD SUGAR 128; NO COVERAGE INDICATED. FIANCE AT BEDSIDE.
--- NOTE | 2021-08-21 14:54 | NUR ---
Pt is intubated, mara lorie is bedside and several family members are in the ICU waiting rm. Lorie tells me that remarkable story of pt's tragic life of inprisonment and pain and the remarkable come back he has had. He not only has turned his life around he has impacted many in turning their addiction and poor choices into a story of triumph. 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 and has assisted in help many people get clean and sober and become productive members of society. He has become a great family man and has a strong spirituality. I provide emotional support to Lorie and pt's son as well as therapeutic listening, gentle guidance and prayer. Lorie responds well and shows signs of increased peace in the midst of her fear and concerns. I will continue to remain available to pt and family.
--- NOTE | 2021-08-21 15:57 | NUR ---
10 ML BOLUS OF NIMBEX GIVEN TO PATIENT PER DR. CAMPO FROM NIMBEX DRIP BAG.
--- NOTE | 2021-08-21 17:11 | NUR ---
HR IN THE 70S. SBP 70S TO 80S. PHENYLEPHRINE STARTED FOR BP SUPPORT. TRENTON AT 30 MCG/ MINUTE. DR. CAMPO WOULD LIKE TO TRY AND KEEP NIMBEX OFF AND PROPOFOL AT 60 MCG/ KG/ MINUTE, IN ADDITION TO PRN ATIVAN PUSHES NEEDED. FAMILY AT BEDSIDE.
--- NOTE | 2021-08-21 19:02 | NUR ---
SHIFT SUMMARY PATIENT REMAINED INTUBATED AND ON SEDATION. NIMBEX IS ON STANDBY. PATIENT DID NOT TOLERATE NIMBEX ON SB THIS MORNING AND CONTINUED TO HAVE TREMORS AND CONSTANT COUGHING. NIMBEX RESTARTED. NIMBEX PLACED ON SB AGAIN MID AFTERNOON. PATIENT CONTINUED TO HAVE COUGHING AND TREMORS AGAIN. DR. CAMPO ORDERED FOR 8 MG PUSH OF ATIVAN, PROPOFOL TO BE INCREASED TO 60 MCG/ KG/ MINUTE, AND 10 MLS OF NIMBEX TO BE PUSHED. PATIENT HAS BEEN RESTING QUIETLY, WITHOUT TREMORS OR COUGHING ON VENT SINCE. PATIENT REMAINES ON PROPOFOL AT 60 MCG/ KG/ MINUTE, FENTANYL INCREASED THIS SHIFT FROM 50 TO 100 MCG/ HOUR, LIDOCAINE REMAINS AT 2 MCG/ MINUTE, NITRO OFF, NIMBEX ON SB, NS TKO AND NEOSYNEPHRINE STARTED AND AT 50 MCG/ MINUTE FOR HYPOTENSION AFTER INCREASED SEDATION. PATIENT ON AC 18, TV 550, PEEP INCREASED FROM 8 TO 10 AND 40% FIO2. LUNGS REMAINED QUITE WHEEZY AND COURSE AND PATIENT HAD LARGE AMOUNT OF THIN, YELLOW SPUTUM UP FROM ETT. ECTOPY MUCH LESS THIS SHIFT AFTER ADDITION OF LIDOCAINE LAST NIGHT. NO BM THIS SHIFT. VHP STARTED AT GOAL RATE OF 25 MLS/ HOUR WITH 30 ML FLUSH Q4H THIS SHIFT. LOZANO DRAINED 1500 MLS OF YELLOW, CLOUDY URINE WITH SEDIMENT NOTED. NO CHANGES TO SKIN NOTED. PATIENT REPOSITIONED Q2H. EEG TO BE PERFORMED TONIGHT. MAI HAS REMAINED AT BEDSIDE ALL DAY WITH SHORT BREAKS. REPORT HAS BEEN GIVEN TO ASSUMING BLUEPRINT TRACER NURSE.
--- NOTE | 2021-08-22 01:22 | NUR ---
ASSUMED CARE AT 1900 PATIENT INTUBATED AND SEDATED ON PROPOFOL AND FENTANYL. PUPILS REACTIVE, NO COUGH OR GAG REFLEX WHEN SUCTIONED AND NO MOVEMENT IN ALL EXTREMETIES. 02 SATS 100% ON VENT AC VC 18/550/10/35%, RR 18. LS WHEEZES, COARSE, MODERATE AMOUNT OF THICK MCKINLEY SECRETIONS FROM ETT. HR SR @60s-70s WITH PVCs, LIDOCAINE INF. BP STABLE WITH MAP >65, TRENTON-SYNEPHRINE INF. ART LINE IN PLACE AND PATENT. PULSES STRONG IN ALL EXTREMETIES. OG INF TUBE FEED, VITAL HP AT GOAL RATE OF 25 MLS/HR WITH 30 MLS FLUSHED Q4 HOURS. LOZANO PATENT AND DRAINING TIMMY URINE. SET UP FOR EEG BEGAN AT 1999- ONCE PATIENT WAS OFF SEDATION HE STARTED TO COUGH, ALMOST AGONAL BREATHING, POSTURING/INTERNAL ROTATION OF ARMS AND SHOULDERS, 02 SATS DECREASED, ATIVAN WAS GIVEN. PATIENT STILL UNABLE TO TOLERATED VENT. SEDATION RESTARTED PATIENT STILL NOT TOLERATING VENT. CALLED DR. CAMPO AND A DOSE OF FENTANYL WAS GIVEN AND PATIENT RELAXED AND 02 SATS IMPROVED WELL PATIENT TOLERATING VENT.
[2021-08-22 04:08] LABS: BASOPHILS ABSOLUTE AUTO 0.02 K/mm3 (0.00-0.23); BASOPHILS PERCENT AUTO 0 % (0-2); EOSINOPHILS ABSOLUTE AUTO 0.03 K/mm3 (0.00-0.68); EOSINOPHILS PERCENT AUTO 0 % (0-6); Hematocrit 37.7 % (37.0-53.0); Hemoglobin 12.6 g/dL (13.5-17.5); IMMATURE GRAN ABSOLUTE AUTO 0.06 K/mm3 (0.00-0.10); IMMATURE GRAN PERCENT AUTO 0 % (0-1); LYMPHOCYTES ABSOLUTE AUTO 1.41 K/mm3 (0.84-5.20); LYMPHOCYTES PERCENT AUTO 10 % (21-46); MONOCYTES ABSOLUTE AUTO 1.23 K/mm3 (0.16-1.47); MONOCYTES PERCENT AUTO 9 % (4-13); Mean Corpuscular HGB 31.2 pg (26.0-34.0); Mean Corpuscular HGB Conc 33.4 g/dL (31.5-36.5); Mean Corpuscular Volume 93 fL (80-100); Mean Platelet Volume 10.5 fL (9.1-12.4); NEUTROPHILS ABSOLUTE AUTO 11.21 K/mm3 (1.96-9.15); NEUTROPHILS PERCENT AUTO 80 % (41-73); Platelet Count 223 K/mm3 (150-400); RDW Coefficient Variation 13.1 % (11.7-14.2); RDW Standard Deviation 44.8 fL (35.1-46.3); Red Blood Cell Count 4.04 M/mm3 (4.30-5.90); White Blood Cell Count 13.96 K/mm3 (4.00-11.30)
[2021-08-22 04:36] LABS: Alanine Aminotransfer (ALT/SGP 53 U/L (12-78); Albumin, Blood 2.6 g/dL (3.4-5.0); Albumin/Globulin Ratio 0.9 (0.8-1.8); Alk Phos 45 U/L (50-136); Anion Gap 5 mmol/L (6-16); Aspartate Aminotrans (AST/SGOT 40 U/L (12-37); Bilirubin, Total 0.5 mg/dL (0.1-1.0); Blood Urea Nitrogen 14 mg/dL (8-24); Bun/Creatinine Ratio 14.6 (12.0-20.0); CO2, Blood 24 mmol/L (21-32); Calcium, Blood 7.8 mg/dL (8.5-10.1); Chloride, Blood 113 mmol/L (98-108); Creatinine, Blood 0.96 mg/dL (0.60-1.20); Glomerular Filtration Rate >60 (60-); Glucose, Blood 108 mg/dL (70-99); Magnesium, Blood 1.8 mg/dL (1.6-2.4); Potassium, Blood 4.2 mmol/L (3.5-5.5); Sodium, Blood 142 mmol/L (136-145); Total Protein, Blood 5.6 g/dL (6.4-8.2)
--- NOTE | 2021-08-22 06:43 | NUR ---
SHIFT SUMMARY PATIENT REMAINS INTUBATED AND SEDATED ON PROPOFOL AND FENTANYL. PUPILS REACTIVE, NO MOVEMENT OF EXTREMETIES OR GAG WITH SUCTION SINCE SEDATION WAS RESTARTED AFTER EEG. 02 SATS 98% ON VENT AC VC 18/550/10/35%, RR 18, LS COARSE WITH WHEEZING, SUCTIONED THICK MCKINLEY SPUTUM FROM ETT. HR SR AT 60s WITH PVCs, LIDOCAINE INF. BP STABLE WITH TRENTON INF, MAP >65. PULSES STRONG IN ALL EXTREMETIES, ART LINE IN PLACE AND PATENT. TEMP REMIANS AT 98.0 WITH COOLING CATH. LOZANO DRAINING TIMMY URINE WITH SEDIMENT. OG INF TUBE FEED AT GOAL RATE. PATIENT TURNED Q2 HOURS. BED BATH COMPLETE AND FULL LINEN CHANGE WELL TELE STICKERS, SKIN ON BOTTOM C/D/I.
--- NOTE | 2021-08-22 12:24 | NUR ---
VENT ASYNCHRONY PT HAD REMAINED SEDATED WITH FENTANYL AND PROPOFOL THROUGHOUT THE MORNING AND HAS TOLERATED VENT WELL. PT TAKEN TO CT AT 1130. AFTER RETURNING TO ROOM PT STARTED TO HAVE SHIVERING LIKE MOVEMENTS WITH TREMORS TO ALL EXTREMITIES. PT ALSO ASYNCHRONUS WITH VENT AND UNABLE TO BE VENTILATED. DR CAMPO AND RT ZIMMER AT BEDSIDE. PT MEDICATED WITH FENTANYL, ATIVAN, AND IV PUSH NIMBEX [address] CAMPO ORDERS. PT NOW PARALYZED AND TOLERATING VENT WELL. FENTANYL SHIRT SORTER AND PROPOFOL REMAIN INFUSING. WILL CONTINUE TO MONITOR.
--- NOTE | 2021-08-22 16:15 | NUR ---
Patient is lying in bed and nonresponsive. Pt's spouse, Lorie is bedside and other family members come in and out during my visit. Lorie is tearful but also states that she is hopeful and is hanging on to "every little positive word from the doctor's mouth." She explains about how some images show that there is very minimal brain swelling and that there is minimal siezure activity. She tells me that she has been praying like she never has in her life and her family and friends are doing the same. I provide emotional/spiritual support, spiritual guidance and prayer. Lorie responds well and shows signs of being comforted. I will continue to remain available to patient and family.
--- NOTE | 2021-08-22 17:38 | NUR ---
SHIFT SUMMARY NO ACUTE CHANGES THIS SHIFT. PT REMAINS INTUBATED AND SEDATED. VENT SETTINGS UNCHANGED AT AC 18, TV 550, PEEP 10, FIO2 40%. PT WITH MODERATE AMOUNT OF THICK YELLOW SECRETIONS WITH ETT SUCTION. PT UNABLE TO BE WEANED OFF SEDATION THIS SHIFT. PT REMAINS SEDATED WITH PROPOFOL AT 60 MCG/KG/MIN, AND FENTANYL FISCAL TECHNICIAN AT 100 MCG/HR. PT WITH EPISODE OF ASYNCHRONY WITH VENT THIS SHIFT. SEE NN FOR MORE INFO. PT HAS TOLERATED VENT WELL THROUGHOUT THE REST OF THE AFTERNOON. VITAL SIGNS HAVE REMAINED STABLE. PT ABLE TO BE WEANED OFF NEOSYNEPHRINE THIS AFTEROON. ART LINE TO LEFT AXILLA REMAINS C/D/I. COOLING CATH CENTRAL LINE REMAINS C/D/I WITH NS INFUSING TKO. COOLING CATH REMAINS SET AT 98.0 F. OGT REMAINS IN PLACE WITH TF INFUSING AT 10 ML/HR GOAL RATE. LOZANO TEMP PROBE REMAINS IN PLACE WITH CLEAR YELLOW URINE OUTPUT NOTED. ABRASIONS TO NOSE/FACE REMAIN UNCHANGED. PT FAMILY MEMBERS HAVE REMAINED AT BEDSIDE THROUGHOUT THE SHIFT AND UPDATED FREQUENTLY. PT CONTINUES TO NOT HAVE PURPOSFUL MOVEMENTS OR WITHDRAW FROM NOXIOUS STIMULI. WILL CONTINUE TO MONITOR AND REPORT OFF TO ONCOMING RN.
--- NOTE | 2021-08-22 20:00 | NUR ---
ASSUMED CARE OF PT AT 1915. REPORT RECEIVED. PT PRESENTS IN BED. SEDATED AND INTUBATED. AC 18, Tv 550, FIO2 35 PERCENT, PEEP 10. LIDOCAINE DRIP AT 2MG/MIN. PROPOFOL 60 MCG'S/KG/MIN. WILL MONITOR AND EVALUATE ABILITY TO TITRATE. PT DOES NOT RESPOND WITH TURNS OR ORAL CARE. WILL REVIEW CHART AND PLAN OF CARE FOR THIS PT.
--- NOTE | 2021-08-22 21:40 | NUR ---
PT HAS RESIDUAL FROM OGT OF 220 ML. THIS REINFUSED. PT AT GOAL RATE WITH TUBE FEEDING AT 10ML/HOUR. WILL MONITOR. FACIAL ABRASIONS HEALING.
[2021-08-23 04:28] LABS: BASOPHILS ABSOLUTE AUTO 0.01 K/mm3 (0.00-0.23); BASOPHILS PERCENT AUTO 0 % (0-2); EOSINOPHILS PERCENT AUTO 0 % (0-6); Hematocrit 36.5 % (37.0-53.0); IMMATURE GRAN ABSOLUTE AUTO 0.07 K/mm3 (0.00-0.10); IMMATURE GRAN PERCENT AUTO 1 % (0-1); LYMPHOCYTES ABSOLUTE AUTO 0.65 K/mm3 (0.84-5.20); LYMPHOCYTES PERCENT AUTO 9 % (21-46); MONOCYTES ABSOLUTE AUTO 0.36 K/mm3 (0.16-1.47); MONOCYTES PERCENT AUTO 5 % (4-13); Mean Corpuscular HGB 30.8 pg (26.0-34.0); Mean Corpuscular HGB Conc 32.9 g/dL (31.5-36.5); Mean Corpuscular Volume 94 fL (80-100); Mean Platelet Volume 10.7 fL (9.1-12.4); NEUTROPHILS ABSOLUTE AUTO 6.12 K/mm3 (1.96-9.15); NEUTROPHILS PERCENT AUTO 85 % (41-73); Platelet Count 196 K/mm3 (150-400); RDW Coefficient Variation 13.1 % (11.7-14.2); RDW Standard Deviation 45.1 fL (35.1-46.3); Red Blood Cell Count 3.89 M/mm3 (4.30-5.90); White Blood Cell Count 7.21 K/mm3 (4.00-11.30)
[2021-08-23 04:53] LABS: Alanine Aminotransfer (ALT/SGP 42 U/L (12-78); Albumin, Blood 2.5 g/dL (3.4-5.0); Albumin/Globulin Ratio 0.8 (0.8-1.8); Alk Phos 45 U/L (50-136); Anion Gap 6 mmol/L (6-16); Aspartate Aminotrans (AST/SGOT 31 U/L (12-37); Bilirubin, Total 0.2 mg/dL (0.1-1.0); Blood Urea Nitrogen 25 mg/dL (8-24); Bun/Creatinine Ratio 28.2 (12.0-20.0); CO2, Blood 24 mmol/L (21-32); Calcium, Blood 8.4 mg/dL (8.5-10.1); Chloride, Blood 112 mmol/L (98-108); Creatinine, Blood 0.89 mg/dL (0.60-1.20); Globulin, Blood 3.2 g/dL (2.2-4.0); Glomerular Filtration Rate >60 (60-); Glucose, Blood 162 mg/dL (70-99); Magnesium, Blood 2.1 mg/dL (1.6-2.4); Phosphorus, Blood 2.8 mg/dL (2.5-4.9); Potassium, Blood 4.6 mmol/L (3.5-5.5); Sodium, Blood 142 mmol/L (136-145); Total Protein, Blood 5.7 g/dL (6.4-8.2)
--- NOTE | 2021-08-23 06:30 | NUR ---
PT HAS FULL BEDBATH DONE THIS NIGHT. PT PASSIVELY TOLERATES THIS. WITH TURNS TO CHANGE OUT BEDDING, PT MOBILIZED LARGE AMOUNT OF YELLOW COLORED SECRETIONS FROM ETT. PROPOFOL HAS BEEN DECREASED TO 50 MCG'S/KG/MIN. PT TOLERATES THIS WELL. CONTINUES ON FENTANYL AT 100 MCG'S/HOUR. WILL CONTINUE TO MONITOR PT, AND WILL REPORT OFF TO ONCOMING RN.
--- NOTE | 2021-08-23 07:15 | NUR ---
Assumed care of pt at 0700. Report received from Jase MONTELONGO. Pt sedated with propofol at 40 mcg/kg/min. Fentanyl 100 mcg/hr. Does not respond to centrally or peripherally applied painful stimulus. Remains in restraints as pt has not been able to tolerate much time off sedation and expreiences bronchospasm, per report. 7.5 cm ETT is 25 cm at teeth. Vent settings ACVC 18/550/10/40%. SpO2 90% or greater. Lidocaine drip remains at 2 mg/min. Pressors off.
--- NOTE | 2021-08-23 11:28 | NUR ---
Propofol and fentanyl have been off since 929. Lungs clear when propofol and fentanyl was turned off. Approx 1010, pt started coughing and looked visibily uncomfortable. Lungs wheezy on auscultation. Dr Lima notified. Breathing treatment given and precedex started at 0.7 mcg/kg/hr per v/o from Dr Lima.
--- NOTE | 2021-08-23 14:29 | NUR ---
INITIAL PAL CARE VISIT - Reviewed EMR and spoke with spine surgeon and pt's bedside RN before visit. I introduced myself to Lorie and later son, Porter came to pt's room in ICU. Lorie was initially on guard and without any promting stated they were not willing to consider that pt will not fully recover. I did not address prognosis or advanced care planning with family. Time spent listening to them reminisce re: who Emma is, what he enjoys, his life's story. Lorie verbalized extreme anxiety about being limited in visitation and wondering if she leaves to go eat, will she be let back in. Assured her that she could go get some fresh air, a meal and take care of herself and she would be allowed back in. Discussed normal visitation hours in ICU and some limitations at night. This visit was primarily for introductions and support. I invited Lorie and Porter to contact us if they had any questions or just wanted to talk. I let them know that one of us from Palliative Care would be checking in regularly and they expressed appreciation of the visit and support. Called Dr Angeles with report on my visit also.
--- NOTE | 2021-08-23 15:49 | NUR ---
Spiritual Care conducted life review of pt from spouse Lorie, provided emotional/spiritual support to family with prayer and encouraged self-care for family members. Family responds well and shows signs of being encouraged in their belief system. Will continue to remain available.
--- NOTE | 2021-08-23 17:05 | NUR ---
SUMMARY Neuro: Pt on 1.4 mcg/kg/hr precedex for ventilator tolerance. Pt experiences bronchospasm with agitation. Pt does not have gag reflex. Pt has cough intact. Pupils 3 mm PERRL. No gaze abnormalities noted. Pt unresponsive. No reaction to pain applied centrally or peripherally. Musculoskeletal: No movement noted BUE or BLE. Dependent care. Repositioned Q2H. Respiratory: 7.5 cm ETT, 25 cm at teeth. Vent settings PS 0, PEEP 10, 40% FiO2 when sedation stopped at 0930. Since then, pt has required FiO2 increase to 50%. All other settings remain the same. Currently RR 24 and tidal volumes 530 mL. SpO2 96%. Pt has productive cough with copious amounts of thick, yellow sputum. Pt has required several breathing treatments today. Cardiac: Continues with lidocaine at 2 mg/min. Required no blood pressure support today. Arterial line present to left axilla. SR per monitor. Rate 70. Color, sensation, pulses, capillary refill equal BUE and BLE. Nonpitting edema present to BUE and BLE. GI: Orogastric tube with tube feeds and flushes per orders. Minimal residuals this shift. Hypoactive BT. Moderate distended abd. No BM this shift. : Good urine output through carrizales catheter, clear susy urine. Skin: Unchanged from initial assessment. Psychosical: AMELIA due to intubation and sedation. Family at bedside since early this morning.
--- NOTE | 2021-08-23 22:12 | NUR ---
ASSUMED CARE OF PT @1900. REPORT RECIEVED FROM IDALIA MONTELONGO. PT SEDATED ON PRECEDEX 1.4MCG/KG/HR. DOES NOT RESPOND TO PAINFUL STIMULI. INTUBATED W/7.5 CM ETT, 25CM @ TEETH, LUNG SOUNDS ARE COARSE THROUGHOUT. PT EXPERIENCES BRONCHOSPASMS AND COUGHING WITH REPOSITIONING. COPIOUS AMOUNTS OF THICK YELLOW SPUTUM WITH SUCTIONING. VENT SETTING SPONTANEOUS MODE, PS 0, PEEP 10, FIO2 50%. NORMAL SINUS RHYTHM, BP STABLE, LIDOCAIN 2MG/MIN. NO BM SINCE 08/20/21. LOZAON DRAINING TIMMY URINE WITH SEDIMENT IN CONTAINER AND LINE. EDEMA BILATERALLY IN UPPER AND LOWER EXTR. L AUX ART LINE IN PLACE, CENTRAL IN R GROIN. MULTIPLE ABRASIONS AND BRUISING TO FACE AND EXTR. DUE TO FALL DURING ARREST. VITAL HP INFUSING @35MLS/HR (GOAL OF 50MLS/HR), FLUSH 30MLS Q4HR. COOLING CATH DISCONTINUED. TEMP @98.2, PER DR CAMPO AGGRESSIVE COOLING MEASURES (ICE AND TYLENOL) IF TEMP 99.0 AND ABOVE
[2021-08-24 03:56] LABS: BASOPHILS ABSOLUTE AUTO 0.03 K/mm3 (0.00-0.23); BASOPHILS PERCENT AUTO 0 % (0-2); EOSINOPHILS PERCENT AUTO 0 % (0-6); Hematocrit 38.4 % (37.0-53.0); IMMATURE GRAN ABSOLUTE AUTO 0.22 K/mm3 (0.00-0.10); IMMATURE GRAN PERCENT AUTO 2 % (0-1); LYMPHOCYTES PERCENT AUTO 9 % (21-46); MONOCYTES ABSOLUTE AUTO 0.63 K/mm3 (0.16-1.47); MONOCYTES PERCENT AUTO 6 % (4-13); Mean Corpuscular HGB 30.7 pg (26.0-34.0); Mean Corpuscular HGB Conc 33.9 g/dL (31.5-36.5); Mean Corpuscular Volume 91 fL (80-100); Mean Platelet Volume 10.6 fL (9.1-12.4); NEUTROPHILS ABSOLUTE AUTO 8.52 K/mm3 (1.96-9.15); NEUTROPHILS PERCENT AUTO 83 % (41-73); NRBC ABSOLUTE 0.06 K/mm3 (0.00-0.02); NRBC Auto 0.6 /100 WBC (0.0-0.2); Platelet Count 236 K/mm3 (150-400); RDW Coefficient Variation 12.7 % (11.7-14.2); RDW Standard Deviation 41.8 fL (35.1-46.3); Red Blood Cell Count 4.23 M/mm3 (4.30-5.90)
[2021-08-24 04:15] LABS: Alanine Aminotransfer (ALT/SGP 48 U/L (12-78); Albumin, Blood 2.6 g/dL (3.4-5.0); Albumin/Globulin Ratio 0.8 (0.8-1.8); Alk Phos 52 U/L (50-136); Anion Gap 6 mmol/L (6-16); Aspartate Aminotrans (AST/SGOT 40 U/L (12-37); Bilirubin, Total 0.4 mg/dL (0.1-1.0); Blood Urea Nitrogen 34 mg/dL (8-24); Bun/Creatinine Ratio 39.8 (12.0-20.0); CO2, Blood 25 mmol/L (21-32); Calcium, Blood 8.2 mg/dL (8.5-10.1); Chloride, Blood 113 mmol/L (98-108); Creatinine, Blood 0.85 mg/dL (0.60-1.20); Globulin, Blood 3.2 g/dL (2.2-4.0); Glomerular Filtration Rate >60 (60-); Glucose, Blood 220 mg/dL (70-99); Potassium, Blood 4.2 mmol/L (3.5-5.5); Sodium, Blood 144 mmol/L (136-145); Total Protein, Blood 5.8 g/dL (6.4-8.2)
--- NOTE | 2021-08-24 06:10 | NUR ---
END OF SHIFT SUMMARY PT REMAINS SEDATED AND INTUBATED. ETT TUBE 7.5 CM, 25 CM @ TEETH, PRECEDEX 1.4MCG/KG/HR. PT EXPERIENCES COUGH AND BRONCHOSPASMS WITH REPOSITIONING. FENTANYL 50MCG GIVEN PRN. OPENS EYES TO STIMULATION, NYSTAGMUS AND UPWARD GAZE. PUPILS 4MM PERRL. NO MOVEMENT OF UPPER OR LOWER EXTREMETIES. PT'S TEMP ELEVATED TO 99.3 AND AGGRESSIVE COOLING WITH ICE PACKS AND TYLENOL PRN STARTED. TEMP RETURNED TO 98.6. TEMP ELEVATED AFTER BED BATH @0330, ICE PACKS AND TYLENOL PRN. RR 20-26, VENT SPONT. MODE PS 0/PEEP10/FIO2 50%, SPO2 REMAINED >94%, MODERATE AMOUNTS OF THICK YELLOW SPUTUM SUCTIONED. PT HAS PRODUCTIVE COUGH. SR 60-80s WITH PVCs PER [employer]. SBP 140-170s. DEPENDANT NONPITTING EDEMA BILATERALLY IN UPPER AND LOWER EXTREMETIES. LIDOCAINE 2MG/MIN. LOZANO PATENT AND DRAINING TIMMY URINE WITH SEDIMENT TO GRAVITY. OG TUBE INFUSING VITAL HP @55MLS/HR GOAL RATE, FLUSH 30MLS H20 Q4H. BOWEL SOUNDS HYPOACTIVE TO NORMAL THROUGHOUT THE NIGHT. L AUX ART LINE IN PLACE, R GROIN CENTRAL LINE, NS TKO. SKIN ASSESSMENT REMAINS UNCHANGED THROUGHOUT SHIFT.
--- NOTE | 2021-08-24 07:15 | NUR ---
Assumed care of pt at 0700. Bedside report received from Yohana Solomon RN and Rene MCCULLOUGH. Pt receiving precedex at 1.4 mcg/kg/hr for ventilator tolerance. 7.5 cm ETT is placed 25 cm at teeth. Vent settings PS 0, PEEP 10, FiO2 50%. SpO2 98%. Lungs clear t/o. Cough and gag present. 3 mm pupils, PERRL. Lidocain continues at 2 mg/minute. HR 57, sinus bradycardia with PVCs present. Pt's s/o, Lorie, at bedside.
--- NOTE | 2021-08-24 08:30 | NUR ---
Dr Angeles in to see patient. Discussed pt's current levels of sedation. Discussed that pt has not had a BM in 4 days. Miralax ordered per Dr Angeles.
--- NOTE | 2021-08-24 09:15 | NUR ---
Dr Lima in to see patient. Disccused pt's sputum culture result and current antibiotic coverage. Disccused PRNs that pt received overnight. Pt had coughing episode with audible leak around cuff while provider in room. Plan for bronchoscopy at 1030 with potential for ETT exchage.
--- NOTE | 2021-08-24 09:35 | NUR ---
Call placed to Dr Rios cellphone. Message left with heart center staff, Bola, who answered provider cellphone. Notified of cardiology reconsult to transition off lidocaine drip.
--- NOTE | 2021-08-24 10:34 | NUR ---
BRONCHOSCOPY/TUBE EXCHANGE 929 - PROPOFOL DRIP STARTED AT 50 MCG/KG/MIN. PRECEDEX CONTINUED AT 1.4 MCG/KG/HR. 1038 - VENT SETTINGS CHANGED TO PRESSURE CONTROL RATE 22, PI 8, PEEP 10, 100% FIO2. 1039 - 100 MG ROCURONIUM GIVEN 1048 - 7.5 CM ETT SUCCESSFULLY SWITCHED FOR 8.5 CM ETT. 24 CM AT TEETH 1049 - PI CHANGED FROM 8 TO 30. 1052 - ETT PLACEMENT VERIFIED BY BRONCHOSCOPY 1058 - PROCEDURE COMPLETE. PLAN TO STOP PROPOFOL AT 1300.
--- NOTE | 2021-08-24 11:35 | NUR ---
Discussed case with auto design detailer Dr Rios. Provider aware that pt is having multiple PVCs. Discussed that lidocaine level is a send out lab and specimen obtained on 08/21 has not yet resulted. Per provider, stop lidocaine drip.
[2021-08-24 12:36] LABS: Anion Gap 7 mmol/L (6-16); Blood Urea Nitrogen 35 mg/dL (8-24); Bun/Creatinine Ratio 40.9 (12.0-20.0); CO2, Blood 26 mmol/L (21-32); Calcium, Blood 8.1 mg/dL (8.5-10.1); Chloride, Blood 110 mmol/L (98-108); Creatinine, Blood 0.86 mg/dL (0.60-1.20); Glomerular Filtration Rate >60 (60-); Glucose, Blood 259 mg/dL (70-99); Magnesium, Blood 1.9 mg/dL (1.6-2.4); Potassium, Blood 4.1 mmol/L (3.5-5.5); Sodium, Blood 143 mmol/L (136-145)
--- NOTE | 2021-08-24 13:00 | NUR ---
Dr Rios and Dr Lima discussing plan of care with family in room. Family verbalizes understanding of plan.
--- NOTE | 2021-08-24 16:21 | NUR ---
Patient is struggling to come off sedation, spouse, Lorie is bedside. Lorie is tearful and quiet. I provide a calming presence and prayer. She responds well and states that she appreciates the spiritual care visit. I will continue to remain available to patient and family.
--- NOTE | 2021-08-24 16:49 | NUR ---
Tylenol and ice packs ineffective at managing pt's temperature. Additionally, pt agitated and coughing. Notified Dr Lima that 50 mcg fentanyl given and provided temporary relief. Provider stated to resume internal cooling measures. Restart propofol. Plan to get head CT today. Propofol at 50 mcg/kg/min to achieve appropriate sedation for procedure. Pt remains on PS 0, PEEP now 5, FiO2 40%. RR 18, tidal volumes 500-600 mL. SpO2 99%. Internal cooling started. Rectal probe placed for secondary temperature measurement device.
--- NOTE | 2021-08-24 17:12 | NUR ---
SUMMARY Neuro: Propofol at 35 mcg/kg/min. Precedex at 1.4 mcg/kg/hr. Resedated as pt was continuously coughing despite PRN fentanyl, lidocaine per ETT. Pt also became febrile and fever did not resolve despite tylenol administration, ice packs, and removal of excess bed linens. Gag present. Cough present. Corneal reflex present. Dolls eyes absent. Pt has opened eyes spontaneously while off propofol. Pt observed blinking and moving eyes. Unclear if eye movement was purposeful as it was subtle, however family believes patient was making intentional eye contact with them. Internal cooling resumed, goal temp 98.0. Musculoskeletal: Movement noted to extremities only with harsh coughing. No movement noted otherwise. Pt remains out of restraints. Repositioned Q2H. Respiratory: ETT changed from size 7.5 to size 8.5. No improvement noted in coughing or gagging / cuff leak noises. Vent settings currently PS 0, PEEP 5, FiO2 40%. Lungs clear t/o. Diminished in bases. Decreased sputum production compared to previous day shift. Cardiac: Lidocaine drip stopped. No changes noted in pt's cardiac rhythm. BP variable dependent on level of agitation but currently 140/80 (102) per arterial line. No additional changes compared to initial assessment. GI: VHP continues per orders. Max residual measured 150 mL. Hypoactive BT. Bowel care started. Per Dr Angeles given miralax Q2H til bowel movement produced. 3 doses given. No BM however a lot of flatus has been passed. Abd remains moderately distended. : Excellent urine output of susy urine this shift through carrizales catheter. Skin: Unchanged from initial assessment. Psychosocial: AMELIA due to intubation and neuro status. Family at bedside for entire shift.
--- NOTE | 2021-08-24 20:55 | NUR ---
ASSUMED CARE OF PT @1900 REPORT FROM IDALIA MONTELONGO. LIDOCAINE DISCONTINUED TODAY. ETT TUBE REPLACED WITH 8.5CM, 24@TEETH. HEAD CT REPORT WAS NORMAL. PT INTUBATED AND SEDATED. PRECEDEX 0.7MCG/KG/HR, PROPOFOL 20MCG/KG/MIN. VITAL HP INFUSING AT GOAL RATE OF 55MLS/HR. COOLING CATH RESTARTED TODAY. PT TEMP 98.7 CURRENTLY. HR 66. SBP 150-160S. LOZANO CATH PATENT AND DRAINING TO GRAVITY WITH TIMMY URINE IN COLLECTION BAG. L AUX ART LINE IN PLACE. R GROIN CENTRAL LINE PATENT. NS TKO. PT HAS MULTIPLE HEALING ABRASIONS ON FACE AND EXTREMITIES. SEE SHIFT ASSESSMENT FOR FULL ASSESSMENT.
[2021-08-25 04:49] LABS: BASOPHILS ABSOLUTE AUTO 0.08 K/mm3 (0.00-0.23); BASOPHILS PERCENT AUTO 1 % (0-2); EOSINOPHILS PERCENT AUTO 0 % (0-6); Hematocrit 38.7 % (37.0-53.0); IMMATURE GRAN ABSOLUTE AUTO 0.49 K/mm3 (0.00-0.10); IMMATURE GRAN PERCENT AUTO 4 % (0-1); LYMPHOCYTES ABSOLUTE AUTO 1.27 K/mm3 (0.84-5.20); LYMPHOCYTES PERCENT AUTO 11 % (21-46); MONOCYTES ABSOLUTE AUTO 1.08 K/mm3 (0.16-1.47); MONOCYTES PERCENT AUTO 10 % (4-13); Mean Corpuscular HGB Conc 33.6 g/dL (31.5-36.5); Mean Corpuscular Volume 92 fL (80-100); Mean Platelet Volume 10.7 fL (9.1-12.4); NEUTROPHILS ABSOLUTE AUTO 8.19 K/mm3 (1.96-9.15); NEUTROPHILS PERCENT AUTO 74 % (41-73); NRBC ABSOLUTE 0.05 K/mm3 (0.00-0.02); NRBC Auto 0.5 /100 WBC (0.0-0.2); Platelet Count 230 K/mm3 (150-400); RDW Coefficient Variation 13.1 % (11.7-14.2); RDW Standard Deviation 44.3 fL (35.1-46.3); Red Blood Cell Count 4.19 M/mm3 (4.30-5.90); White Blood Cell Count 11.11 K/mm3 (4.00-11.30)
[2021-08-25 05:17] LABS: Alanine Aminotransfer (ALT/SGP 96 U/L (12-78); Albumin, Blood 2.6 g/dL (3.4-5.0); Albumin/Globulin Ratio 0.8 (0.8-1.8); Alk Phos 61 U/L (50-136); Anion Gap 6 mmol/L (6-16); Aspartate Aminotrans (AST/SGOT 67 U/L (12-37); Bilirubin, Total 0.4 mg/dL (0.1-1.0); Blood Urea Nitrogen 31 mg/dL (8-24); Bun/Creatinine Ratio 41.5 (12.0-20.0); CO2, Blood 25 mmol/L (21-32); Calcium, Blood 8.2 mg/dL (8.5-10.1); Chloride, Blood 110 mmol/L (98-108); Creatinine, Blood 0.75 mg/dL (0.60-1.20); Globulin, Blood 3.3 g/dL (2.2-4.0); Glomerular Filtration Rate >60 (60-); Glucose, Blood 213 mg/dL (70-99); Potassium, Blood 4.2 mmol/L (3.5-5.5); Sodium, Blood 141 mmol/L (136-145); Total Protein, Blood 5.9 g/dL (6.4-8.2)
--- NOTE | 2021-08-25 06:03 | NUR ---
SHIFT SUMMARY PT REMAINS SEDATED AND INTUBATED. PROPOFOL 50MCG/KG/MIN. PRECEDEX 0.4MCG/KG/HR. NS TKO. 8.5 CM ETT TUBE 24CM @TEETH. VENT SETTINGS SPONTANEOUS MODE PS 0/PEEP 5/FIO2 40%. PT CONTINUED TO HAVE BRONCHOSPASMS AND COUGHING WITH REPOSITIONING AND NURSING CARE. MILD EXPIRATORY WHEEZES. TEMP RANGED FROM 98.1-99.0 WITH COOLING CATH. R GROING CENTRAL LINE PATENT. L AUX ART LINE IN PLACE AND PATENT. SBP 110-150s, HR 50-70s, SPO2 >94. GOOD OUTPUT OF TIMMY COLORED URINE THROUGHOUT THE NIGHT. NO BM. MIRALAX GIVEN OG TUBE Q4HRS VITAL HP 55MLS/HR GOAL RATE, LOW RESIDUALS AFTER MIDNIGHT. SKIN ASSESSMENT REMAINS THE SAME. DURING LAST POSITION CHANGE @0600 NOTICED MILD TREMORS IN LOWER LEGS. ATIVAN GIVEN AND TREMORS RESOLVED. WILL MONITOR AND REPORT TO ONCOMING RN.
--- NOTE | 2021-08-25 07:13 | NUR ---
ASSUME CARE: I have assumed care of this patient.
--- NOTE | 2021-08-25 10:38 | NUR ---
Patient's fiance, Lorie, is bedside. She tells me her understanding of the care plan for the day and then her fears of how pt will do with the proposed direction. I provide encouragement, reading of inspirational material and prayer. Lorie reponds well and shows signs of increased hope.
--- NOTE | 2021-08-25 18:41 | NUR ---
SHIFT SUMMARY: NEUROLOGICAL: Sedation stopped this morning for a few hours this morning. During this time pt had incessant cough with kussmal breathing. Nebulized lidocane was administered as well as guaifensein/codeine to aid with minimal relief. While off sedation pt does open eye spontaneously. He did not appear to be tracking. RN unable to elicit gag. He is not following commands and no spontaneous movement noted by RN. Pt's family notes that he has been moving his right foot to command. When called into room by family, RN did note some faint movements of the right foot that were. Three doses of 50mcg of PRN fentanyl given for aggitation in the form of elevated BP, tachycardia, hyperthermia, and coughing; Symptoms responded well to fentanyl. BLE hypertonic. Cardiac: Intermittant tachycardia and hypertension throughout the day related to sedation weaning and nursing cares. Respiratory: Vent settings continue pressure support of 5/5. [id number]% Pt pulling large tidal volumes and tachypnaic. Wheeze noted in right upper lobe; left lung sounds coarse. Copious oral secretions. GI/: VHP at goal of 20ml/hr with free water flushes 30ml q4 hr. Two large liquid bowel movements today. Bowel meds held. Temp probe carrizales catheter in place with 2150 UOP; total fluid balance -1128. ID: Tmax of 100.8. One dose of tylenol given PT; ICY Cath continues to cool pt. Blood cultures drawn. Social: Pt's mara has been at bedside throughout the day with pt's two adult sons. Pt's fiance has requested family conference to help her communicate pt's status to other family member; scheduled for 08/26/21 at noon.
--- NOTE | 2021-08-25 19:15 | NUR ---
ASSUMED CARE OF PATIENT AT 1915. PT IS INFUSING DEXMEDETOMIDINE DRIP AT 1.4 MCG/KG/HR, PROPOFOL AT 50 MCG/KG/MIN, AND IV FLUIDS AT 100 ML/HR. HE IS RECIEVING VITAL HIGH PROTEIN AT 20 ML/HR VIA OG TUBE. PT HAS AN ET TUBE WITH VENT ON SPONTANEOUS SETTING. RR 21, PS 5/PEEP 5, 40%. PATIENT HAS A TEMPERATURE CATHETER SET TO 98.0. PT IS IN SINUS GREG WITH HR IN THE 50'S. PT HAS A LOZANO CATHETER DRAINING YELLOW URINE TO GRAVITY. PT IS NOT IN RESTRAINTS DUE TO LACK OF PURPOSEFUL MOVEMENT. SEE SHIFT SUMMARY FOR FURTHER DETAILS.
[2021-08-26 03:36] LABS: BASOPHILS ABSOLUTE AUTO 0.04 K/mm3 (0.00-0.23); BASOPHILS PERCENT AUTO 0 % (0-2); EOSINOPHILS ABSOLUTE AUTO 0.03 K/mm3 (0.00-0.68); EOSINOPHILS PERCENT AUTO 0 % (0-6); Hematocrit 38.2 % (37.0-53.0); Hemoglobin 12.9 g/dL (13.5-17.5); IMMATURE GRAN ABSOLUTE AUTO 0.35 K/mm3 (0.00-0.10); IMMATURE GRAN PERCENT AUTO 4 % (0-1); LYMPHOCYTES ABSOLUTE AUTO 1.06 K/mm3 (0.84-5.20); LYMPHOCYTES PERCENT AUTO 11 % (21-46); MONOCYTES ABSOLUTE AUTO 0.92 K/mm3 (0.16-1.47); MONOCYTES PERCENT AUTO 10 % (4-13); Mean Corpuscular HGB 31.2 pg (26.0-34.0); Mean Corpuscular HGB Conc 33.8 g/dL (31.5-36.5); Mean Corpuscular Volume 93 fL (80-100); Mean Platelet Volume 10.4 fL (9.1-12.4); NEUTROPHILS ABSOLUTE AUTO 7.05 K/mm3 (1.96-9.15); NEUTROPHILS PERCENT AUTO 75 % (41-73); NRBC ABSOLUTE 0.03 K/mm3 (0.00-0.02); NRBC Auto 0.3 /100 WBC (0.0-0.2); Platelet Count 195 K/mm3 (150-400); RDW Coefficient Variation 12.9 % (11.7-14.2); RDW Standard Deviation 43.6 fL (35.1-46.3); Red Blood Cell Count 4.13 M/mm3 (4.30-5.90); White Blood Cell Count 9.45 K/mm3 (4.00-11.30)
[2021-08-26 03:59] LABS: Anion Gap 5 mmol/L (6-16); Blood Urea Nitrogen 25 mg/dL (8-24); Bun/Creatinine Ratio 40.9 (12.0-20.0); CO2, Blood 30 mmol/L (21-32); CPK Creatine Kinase 165 U/L (39-308); Calcium, Blood 8.3 mg/dL (8.5-10.1); Chloride, Blood 108 mmol/L (98-108); Creatinine, Blood 0.61 mg/dL (0.60-1.20); Glomerular Filtration Rate >60 (60-); Glucose, Blood 175 mg/dL (70-99); Magnesium, Blood 1.9 mg/dL (1.6-2.4); Phosphorus, Blood 4.3 mg/dL (2.5-4.9); Potassium, Blood 4.3 mmol/L (3.5-5.5); Sodium, Blood 143 mmol/L (136-145)
--- NOTE | 2021-08-26 04:35 | NUR ---
CALL PLACED TO DR. TRUJILLO DISCUSSED CONCERN ABOUT XRAY WITH PT HAVING ACTIVE WHEEZING TO BILATERAL UPPER LOBES AND DIMINISHED TO BILATERAL LOWER LOBES. DR. TRUJILLO STATED IT APPEARS THE PNEUMONIA HAS WORSENED. INFORMED HIM THAT PT WAS ON IV ROCEPHIN DAILY. NO NEW ORDERS WERE GIVEN.
--- NOTE | 2021-08-26 04:56 | NUR ---
END OF SHIFT SUMMARY PT IS ON DEXMEDETOMIDINE 1 MCG/KG/HR, IV FLUIDS AT 100 ML/HR, AND PROPOFOL AT 50 MCG/KG/MIN. DECREASES IN SEDATION LED TO COUGHING. THEREFORE NO SEDATION VACATION PERFORMED THIS SHIFT. PT IS RECIEVING VITAL HIGH PROTEIN FEEDING THROUGH OG TUBE AT 20 ML/HR. PT IS ON SPONTANEOUS SETTING ON VENT, PS 5/5, 20 RR, 50% FIO2. PT SHOWED DECEREBRATE POSTERING BILATERALLY IN LOWER EXTREMETIES WHEN NOXIOUS STIMULI APPLIED, NEGATIVE DOLLS EYES, AND POSITIVE BABINSKI REFLUX IS PRESENT. WHEEZING AUSCULTATED IN R AND L UPPER LOBES. PT DESATS INTO 80'S WITH RECOVERY AFTER ADMINISTRATION OF FENTANYL. PT HAS BEEN AFEBRILE WITH TMAX OF 98.2. WILL CONTINUE TO MONITOR UNTIL REPORT IS HANDED OFF TO ONCOMING RN.
--- NOTE | 2021-08-26 08:59 | NUR ---
AM NOTE.... ASSUMED CARE OF PT AT 0700, THE PT IS INTUBATED AND SEDATED, THE PT IS UNRESPONSIVE TO PAINFUL STIMULI AT THIS TIME. THE PROPOFOL IS RUNNING AT 50MCG/KG AND THE PRECEDEX IS RUNNING AT 1.0MCG/KG. THE PT'S ET TUBE IS 8.5 AND 24 AT THE TEETH, VENT SETTINGS ARE PS:5/5 AND 50% WITH O2 SATS>90%. L/S CLEAR/DIM ON THE LEFT SIDE WITH INSP WHEEZES NOTED IN THE RIGHT UPPER AND MID LOBES. RR IS 18-22. THE PT HAS A WEAK COUGH WITH SUCTION, NO SECRETIONS SUCTIONED VIA THE ET TUBE THIS AM BY THIS RN. THE PT'S OG TUBE IS PATENT AND RUNNING TUBE FEED AT A GOAL OF 20MLS/HR WITH 45MLS OF RESIDUAL NOTED AND REINSTILLED. BT PRESENT AND HYPOACTIVE,ABD IS SLIGHTLY FIRM TO PALPATION. THE PT'S LOZANO IS PATENT AND DRAINING TO GRAVITY. THE PT'S TEMP VIA COOLING CATH IS 98.0. COOLING CATH SITE IS PATENT WITH SOME DRY BLOOD NOTED. DURING AM ASSESSMENT THE PT'S O2 SATS STARTED TO DROP DOWN TO 85% THE PT'S FIO2 WAS TITRATED UP FROM 50% TO 100% TO KEEP THE PT'S O2 SATS >89% NO CHANGES NOTED TO THE PT'S L/S AND NO SECRETIONS NOTED WITH SUCTIONING. AT 0845 DR. FORD AT THE BEDSIDE TO ASSESS THE PT, THE PT'S PROPOFOL WAS TURNED DOWN FROM 50MCG/KG TO 10MCG/KG, THE PRECEDEX CONTINUES TO RUN AT 1.0 MCG/KG WILL CONTINUE TO MONTIOR
--- NOTE | 2021-08-26 12:39 | NUR ---
PT UPDATE.... THE PT'S SEDATION WAS TURNED OFF AT APROX 1045. CURRENTLY AT 1240 THE PT HAS OPENED HIS EYES AND PULLES HIS RIGHT ARM UP DURING COUGHING SPELLS, THE PT'S RIGHT ARM DID MOVE INDEPENDENTLY WHILE THE PT'S S.O. WAS HOLDING HIS HAND, SHE STATED THAT HE SQUEEZED HER HAND WHEN SHE ASKED, THIS RN HELD THE PT'S HAND AND SOON THIS RN GRABBED THE PT'S RIGHT HAND HE SQUEEZED IT BUT THE PT WAS UNABLE TO DO THIS ACTION AGAIN ON COMMAND. DURING THIS TIME THE PT ALSO BECAME VERY HYPERTENSIVE WITH SBPs IN THE 200'S AND DBPs IN THE 100'S-110'S. THE PT WAS MEDICATED WITH HYDRALAZINE, THIS DID NOT HELP, THE PT WAS MEDICATED WITH FENANYL PER EMAR WHICH DID NOT HELP EITHER. DR. FORD WAS CALLED AND NEW ORDERS WERE OBTAINED FOR LABATALOL 40MG IV Q4 PRN. THIS WAS GIVEN AND DID SEEM TO HELP BRING THE PT'S BP SLOWLY DOWN (SEE VS). THE PT CONTINUES TO HAVE COUGHING EPISODES BUT HIS O2 SATS STAY >90%. A SPUTUM SAMPLE WAS OBTAINED VAI THE ET TUBE AND SEND TO THE LAB FOR C AND S. AT 1200 THE FAMILY HAD A MEETING WITH , THEY PLAN TO STAY THE COURSE AT THIS TIME. WILL CONTINUE TO MONITOR.
--- NOTE | 2021-08-26 18:42 | NUR ---
SHIFT SUMMARY.... THE PT WAS OFF OF SEDATION FOR MOST OF THIS SHIFT THE PT WAS PLACED BACK ON SEDATION AROUND 1700 THE PT'S BP SLOWLY STARTED TO IMPROVE (SEE VS). THE PT'S FAMILY HAS BEEN AT THE BEDSIDE T/O THIS SHIFT. THE PT WAS ABLE TO OPEN HIS EYES BUT WAS NOT TRACKING OR RESPONDING TO ANY VISUAL OR VERBAL STIMULI. THE PT WAS ABLE TO LIFT HIS LEFT ARM UP AND SQUEEZE THAT HAND BUT NOT TO COMMAND. A RECTAL TUBE WAS PLACED D/T VERY LARGE LIQUD BROWN STOOLS, THE RECTAL TUBE HAS WORKED WELL THIS SHIFT WITH 100MLS OF LIQUID BROWN STOOLS IN THE BAG. THE PT'S LOZANO IS PATENT AND DRAINING TO GRAVITY. THE PT'S TMAX HAS BEEN 99.8 THIS SHIFT, THE PT'S TEMP DID NOT RESPOND TO TYLENOL. COOLING CATH STILL IN PLACE AND SET TO A MAX TEMP OF 98.0. THE PT'S VENT SETTINGS WERE CHANGED FROM PRESSURE SUPPORT OF 5/5 WITH 50% TO 5/12 AND 50% THIS INCREASE OF PEEP DECREASED THE PT'S RR FROM THE HIGH 30'S TO 40'S DOWN TO THE MID TO HIGH 20'S. THE PT'S TUBE FEEDS ARE RUNNING PER ORDERS WITH A MAX RESIDUAL OF 110MLS THAT WAS REINSTILLED. WILL CONTINUE TO MONITOR UNTIL REPORT IS GIVEN TO ONCOMING RN.
--- NOTE | 2021-08-26 19:27 | NUR ---
ASSUMED CARE OF PT AT 1915. PT HAS DEXMEDETROMIDINE INFUSING AT 0.7 MCG/KG/HR, IV FLUIDS AT 100 ML/HR, PROPOFOL AT 50 MCG/KG/MIN, AND VITAL HIGH PROTEIN INFUSING VIA OG TUBE AT 20 ML/HR. PT'S VENT SETTINGS ARE AT RR 17, PS 5/12 PEEP, 50%. HIS TEMPERATURE IS CURRENTLY 100.0 PER CORE COOLING CATH MEASUREMENTS. PT'S LOZANO IS DRAINING TO GRAVITY, WELL HIS RECTAL TUBE. FAMILY IS AT BEDSIDE. SEE SHIFT SUMMARY FOR FURTHER DETAILS.
[2021-08-27 03:55] LABS: BASOPHILS ABSOLUTE AUTO 0.03 K/mm3 (0.00-0.23); BASOPHILS PERCENT AUTO 0 % (0-2); EOSINOPHILS ABSOLUTE AUTO 0.05 K/mm3 (0.00-0.68); EOSINOPHILS PERCENT AUTO 1 % (0-6); Hematocrit 38.1 % (37.0-53.0); Hemoglobin 12.4 g/dL (13.5-17.5); IMMATURE GRAN ABSOLUTE AUTO 0.18 K/mm3 (0.00-0.10); IMMATURE GRAN PERCENT AUTO 2 % (0-1); LYMPHOCYTES ABSOLUTE AUTO 1.16 K/mm3 (0.84-5.20); LYMPHOCYTES PERCENT AUTO 12 % (21-46); MONOCYTES ABSOLUTE AUTO 0.86 K/mm3 (0.16-1.47); MONOCYTES PERCENT AUTO 9 % (4-13); Mean Corpuscular HGB 30.2 pg (26.0-34.0); Mean Corpuscular HGB Conc 32.5 g/dL (31.5-36.5); Mean Corpuscular Volume 93 fL (80-100); Mean Platelet Volume 10.4 fL (9.1-12.4); NEUTROPHILS ABSOLUTE AUTO 7.85 K/mm3 (1.96-9.15); NEUTROPHILS PERCENT AUTO 77 % (41-73); Platelet Count 171 K/mm3 (150-400); RDW Standard Deviation 44.1 fL (35.1-46.3); White Blood Cell Count 10.13 K/mm3 (4.00-11.30)
[2021-08-27 04:17] LABS: Alanine Aminotransfer (ALT/SGP 81 U/L (12-78); Albumin, Blood 2.6 g/dL (3.4-5.0); Albumin/Globulin Ratio 0.9 (0.8-1.8); Alk Phos 65 U/L (50-136); Anion Gap 5 mmol/L (6-16); Aspartate Aminotrans (AST/SGOT 45 U/L (12-37); Bilirubin, Total 0.7 mg/dL (0.1-1.0); Blood Urea Nitrogen 30 mg/dL (8-24); Bun/Creatinine Ratio 48.8 (12.0-20.0); CO2, Blood 30 mmol/L (21-32); Calcium, Blood 8.5 mg/dL (8.5-10.1); Chloride, Blood 107 mmol/L (98-108); Creatinine, Blood 0.62 mg/dL (0.60-1.20); Glomerular Filtration Rate >60 (60-); Glucose, Blood 145 mg/dL (70-99); Phosphorus, Blood 4.1 mg/dL (2.5-4.9); Potassium, Blood 4.2 mmol/L (3.5-5.5); Sodium, Blood 142 mmol/L (136-145); Total Protein, Blood 5.6 g/dL (6.4-8.2)
--- NOTE | 2021-08-27 05:45 | NUR ---
SHIFT SUMMARY NO SIGNIFICANT CHANGES NOTED. PT IS ON PRECEDEX DRIP 0.7 MCG/KG/HR, PROPOFOL 50 MCG/KG/MIN, AND IV FLUIDS 100 ML/HR. PT'S VENT SETTINGS ARE 17 RR, PS 5/12 PEEP, 50%. NO CHANGE OF NEURO STATUS NOTED, NO PURPOSEFUL MOVEMENTS. PT CONTINUES DECEREBRATE POSTURING BLE WITH NOXIOUS STIMULI. PT CONTINUES TO SECRETE THICK WHITE DISCHARGE FROM ET TUBE. TARGET TEMPERATURE MAINTAINING AT 97-98 DEGREES WITH COOLING CATH TO RIGHT GROIN TO AVOID SPIKES IN TEMPERATURE. WILL CONTINUE TO MONITOR UNTIL ONCOMING RN.
--- NOTE | 2021-08-27 07:45 | NUR ---
AM NOTE.... ASSUMED CARE OF PT AT 0700, THE PT IS INTUBATED AND SEDATED ON PROPOFOL AT 50MCG/KG AND PRECEDEX RUNNING AT 0.7MCG. THE PT'S VENT SETTINGS CONTINUE ON PRESSURE SUPPORT OF 5/12 AND 50% WITH O2 SATS >90% L/S CLEAR AND DIM SLIGHTLY COARSE IN THE BASES. THE PT IS UNRESPONSIVE TO PAINFUL STIMULI, PUPILS ARE EQUAL 2MM AND SLUGGISH, THE PT HAS A RIGHT UPWARD GAZE AT THIS TIME. DURING COUGHING EPISODES THE PT IS EXHIBITING DECORTICATE POSTURING WITH HIS ARMS PULLED UP TO HIS CHEST AND FISTS CLENCHED, LEGS RIDGED AND STRAIGHT WITH FEET POINTED DOWN. THE PT'S OG TUBE IS PATENT AND DRAINING TO GRAVITY. THE PT'S BT ARE PRESENT AND VERY HYPOACTIVE, ABD HAS MODERATE DISTENTION AND IS FIRM TO PALPATION. THE PT'S LOZANO IS PATENT AND DRAINING TO GRAVITY. A COOLING CATH IS IN PLACE IN THE RIGHT GROIN THE COOLING CATH IS SET TO 97.7 THE PT'S TEMP THIS AM WAS 97.9. THE RECTAL TUBE IS PATENT AND DRAINING TO GRAVITY. WILL CONTINUE TO MONITOR.
--- NOTE | 2021-08-27 12:36 | NUR ---
AM NOTE: ASSUMED CARE OF PT AT 0700. PT INTUBATED AND SEDATED WITH PRECEDEX 0.7 MCG/KG/HR AND PROPOFOL AT 50 MCG/KG/MIN. PT HAS SMALL PUPILS THIS MORNING THAT ARE SLUGGLISH WHEN REACTING TO LIGHT. THE PT HAD NO WITHDRAW TO PAIN STIMULI THIS AM. SMALL LEAK NOTED IN THE ETT CUFF AND 1ML INSERTED INTO THE CUFF THIS AM. VITAL SIGNS WERE 02 AT 88%, HR IN THE 100'S, SBP WITHIN 120-130'S, AND TEMPERATURE AT 97.6. THE PT'S FIANCE VISITING THIS MORNING. RESIDUALS CHECKED THIS MORNING AT 1145, MEASURING AT 270 ML. BOWEL TONES WERE HYPOACTIVE AND LOW-PITCHED. RT IN THIS MORNING TO REPOSITION THE PT'S BITE BLOCK, IT HAD SLIPPED FARTHER DOWN INTO THE PT'S THROAT. THE ETT WAS CHEKCED AFTER REPOSITIONING THE BITE GUARD AND WAS MEASURED AT 25CM AT THE TEETH. DR. FORD AT BEDSIDE THIS AM AND INSTRUCTED THAT THE PLAN FOR THE DAY WAS TO TAKE THE PATIENT COMPLETLY OFF THE PRECEDEX AND PROPOFOL AND OBSERVE THE PT'S REACTION. WILL CONTINUE TO MONITOR.
--- NOTE | 2021-08-27 14:17 | NUR ---
PT UPDATE.... STARTING AT 1300 THE PT'S TEMP STARTED TO INCREASE, THE COOLING CATH TEMP WAS DECREASED FROM 97.7 TO 96.7 AND ICE PACKS WERE APPLIED NOW AT 1415 THE PT'S TEMPS ARE STILL TRENDING UP TO 100.5. THE PT DID NOT RESPOND TO TYLENOL WHEN IT HAS BEEN GIVEN IN THE PAST. THE PT IS STILL UNRESPONSIVE TO PAINFUL STIMULI, THE PT HAS OPENED HIS EYES BUT DOES NOT TRACK MOVEMENT OR HAVE A PROTECTIVE RESPONSE. WILL CONTINUE TO MONITOR.
--- NOTE | 2021-08-27 15:35 | NUR ---
AFTERNOON UPDATE: PT'S CORE TEMPERATURE HAS BEEN INCREASING THROUGHOUT THE SHIFT AND IS CURRENTLY AT 100.2. COOLING CATHETER TEMPERATURE HAS BEEN TURNED DOWN TO HELP COOL DOWN PT AND STABILIZE TEMPERATURE. ICE PACKS AND COOL WASH CLOTHS HAVE BEEN PLACED ON THE PT ANOTHER INTERVENTION TO COOL THE PT. PRECEDEX AND PROPOFOL HAVE BEEN PLACED ON STANDBY SINCE 1200 AND THE PT HAS BEEN SLIGHTLY UNCOMFORTABLE THROUGHOUT THE DAY. TWO DOSES OF FENTANYL HAVE BEEN ADMINISTERED IN AN ATTEMPT TO MAINTAIN THE PT'S COMFORT LEVELS. THE PT'S ORBITAL EDEMA HAS BEEN INCREASING THROUGHOUT THE SHIFT. AFTER TAKING THE PT OFF OF HIS SEDATIVE MEDICATIONS, THERE STILL HAS YET TO BE ANY SPONTANEOUS EYE MOVEMENTS OR GROSS MOTOR MOVEMENTS. COUGHING IS FREQUENT AND FORCEFUL THROUGHOUT THE SHIFT. WILL CONTINUE TO MONITOR.
--- NOTE | 2021-08-27 18:26 | NUR ---
SHIFT SUMMARY.... THE PT'S SEDATION VACATION WAS STARTED THIS SHIFT AT 1100, THE PT WAS OFF OF SEDATION UNTIL 1550. THE PT WAS NOT RESPONDING TO ANY TYPE OF PAINFUL STIMULI OR FOLLOWING ANY COMMANDS, THE PT'S LEFT PUPIL WAS MORE SLUGGISH THAN THE RIGHT PRIOR TO RESTARTING THE SEDATION. THE PT WAS NOT ABLE TO TRACK ANY MOVEMENTS WITH HIS EYES. DURING THE SEDATION VACATION THE PT WAS HAVING VERY FREQUENT COUGHING EPISODES BUT THESE EPISODES DID NOT CAUSE HIS O2 SATS TO DROP. AT 1530 THIS RN NOTED THE PT'S COUGHING EPISODES WERE BECOMING MORE FREQUENT, THE PT'S FACE AND WHOLE TORSO WOULD TURN DARK RED DURING THESE EPISODES. THE PT'S BITING AND CHEWING OF THE ET TUBE WAS BECOMING MORE AGRESSIVE, AT 1550 THE PT'S SEDATION WAS TURNED BACK ON TO MAKE HIM MORE COMFORTABLE. ONCE THE PT WAS SEDATED RT WAS CALLED INTO THE ROOM TO REPLACED THE BITE BLOCK THAT HAD BEEN PULLED DOWN THE ET TUBE AND INTO THE PT'S MOUTH FROM THE CONSTANT CHEWING AND BITING OF THE ET TUBE BY THE PT. ONCE THE BITE BLOCK WAS REPLACED BY RT, RT DEFLATED THE COLD HEADER BALOON, WHEN THIS HAPPENED IT WAS NOTED THERE WAS NO LEAK AT ALL, THE VENT DID NOT LOSE ANY TITLE VOLUME AND THE PT'S O2 SATS DID NOT DROP. THE CUFF WAS DEFLATED AGAIN TO DOUBLE CHECK THAT THERE WAS NO LEAK AND NO LEAK WAS HEARD. NO CREPITUS WAS NOTED ON ASSESSMENT OF THE PT'S NECK OR CHEST AT THIS TIME. THE PROVIDER WAS NOTIFIED OF THIS CHANGE AND NO NEW ORDERS WERE GIVEN. THE PT'S BP GREATLY IMPROVED AFTER SEDATION WAS RESTARTED. WILL CONTINUE TO MONITOR UNTIL REPORT IS GIVEN TO ONCOMING RN.
--- NOTE | 2021-08-27 18:30 | NUR ---
SHIFT SUMMARY: PT INTUBATED AND SEDATED UNTIL APPROX. 1030; PER , THE PATIENT WAS TAKEN OFF OF THE SEDATIVE MEDICATIONS TO OBSERVE AND ASSESS NEUROLOGICAL FUNCTIONING. THE PT SHOWED NO SIGNS OF SPONTANEOUS EYE MOVEMENTS OR GROSS MOTOR MOVEMENTS. PT HAD NO RESPONSE TO PAIN STIMULI. THE SBP ELEVATED THROUGHTOUT THE DAY AND MAINTAINED AROUND 180-190'S. PT MEDICATED PER EMAR AND SBP CAME BACK DOWN TO THE 130'S. O2 LEVELS MAINTAINED 95%<. PT TACHYCARDIC FOR THE MAJORITY OF THE DAY, BUT CAME BACK DOWN TO THE 70'S AFTER MEDICATED. THE DAY PROGRESSED, THE PT BECAME MORE UNCOMFORATBLE AND WAS COUGHING CONTINUOUSLY, SO SEDATION WAS RESTARTED AND THE PROVIDER WAS NOTIFIED; PRECEDEX RUNNING AT 0.07 MCG/ML/HR AND PROPOFOL AT 50 MCG/KG/MIN. AROUND 1700, BITE GUARD WAS READJUSTED AND RT ROBLES TESTED THE PATENCY OF THE ETT CUFF AND NOTED THAT THERE WAS NO LEAK PRESENT WHEN CUFF WAS DEFLATED COMPLETELY. I BELIEVE THAT THE PT'S AIRWAY HAS BECOME SWOLLEN DUE TO THE VIGOROUS COUGHING THAT TOOK PLACE THROUGHOUT THE SHIFT. THE PROVIDER WAS NOTIFIED THIS EVENING. TEMPERATURE WAS ELEVATED FOR THE MAJORITY OF THE SHIFT PEAKING AT 100.4. COOLING METHODS WERE INTIATED AND TEMPERATURE WAS BROUGHT DOWN TO 99.6. CENTRAL LINE DRESSING CHANGE WAS CONDUCTED THIS SHIFT AND THE SITE IS DRY AND INTACT. FIO2 WAS TITRATED DOWN TO 40% AND THE PT APPEARS TO BE TOLERATING WELL.
--- NOTE | 2021-08-27 19:15 | NUR ---
ASSUMED CARE OF PT AT 19:15. PT IS INFUSING PRECEDEX AT 0.7 MCG/KG/HR, IV FLUIDS AT 100 ML/HR, AND PROPOFOL AT 50 MCG/KG/MIN. HIS VENTILATOR SETTINGS ARE PS 5/12 PEEP, 15 RR, 40%. TEMPERATURE IS 99.6. VHP INFUSING AT 20 ML/HR. FAMILY IS BEDSIDE. SEE SHIFT NOTES FOR FURTHER DETAILS.
[2021-08-28 04:34] LABS: BASOPHILS ABSOLUTE AUTO 0.02 K/mm3 (0.00-0.23); BASOPHILS PERCENT AUTO 0 % (0-2); EOSINOPHILS ABSOLUTE AUTO 0.08 K/mm3 (0.00-0.68); EOSINOPHILS PERCENT AUTO 1 % (0-6); Hemoglobin 11.8 g/dL (13.5-17.5); IMMATURE GRAN PERCENT AUTO 2 % (0-1); LYMPHOCYTES ABSOLUTE AUTO 1.26 K/mm3 (0.84-5.20); LYMPHOCYTES PERCENT AUTO 11 % (21-46); MONOCYTES ABSOLUTE AUTO 1.04 K/mm3 (0.16-1.47); MONOCYTES PERCENT AUTO 9 % (4-13); Mean Corpuscular HGB 30.3 pg (26.0-34.0); Mean Corpuscular HGB Conc 32.8 g/dL (31.5-36.5); Mean Corpuscular Volume 93 fL (80-100); Mean Platelet Volume 10.2 fL (9.1-12.4); NEUTROPHILS ABSOLUTE AUTO 8.58 K/mm3 (1.96-9.15); NEUTROPHILS PERCENT AUTO 77 % (41-73); Platelet Count 176 K/mm3 (150-400); RDW Coefficient Variation 12.7 % (11.7-14.2); RDW Standard Deviation 42.8 fL (35.1-46.3); Red Blood Cell Count 3.89 M/mm3 (4.30-5.90); White Blood Cell Count 11.18 K/mm3 (4.00-11.30)
[2021-08-28 04:49] LABS: Anion Gap 4 mmol/L (6-16); Blood Urea Nitrogen 25 mg/dL (8-24); Bun/Creatinine Ratio 45.4 (12.0-20.0); CO2, Blood 31 mmol/L (21-32); Calcium, Blood 8.3 mg/dL (8.5-10.1); Chloride, Blood 107 mmol/L (98-108); Creatinine, Blood 0.55 mg/dL (0.60-1.20); Glomerular Filtration Rate >60 (60-); Glucose, Blood 164 mg/dL (70-99); Phosphorus, Blood 3.5 mg/dL (2.5-4.9); Potassium, Blood 4.1 mmol/L (3.5-5.5); Sodium, Blood 142 mmol/L (136-145)
--- NOTE | 2021-08-28 06:16 | NUR ---
END OF SHIFT SUMMARY. NO SIGNIFICANT CHANGES. PT HAS PRECEDEX DRIP OF 0.7 MCG/KG/HR, IV FLUIDS AT 100 ML/HR, AND PROPOFOL INFUSING AT 50 MCG/KG/MIN. PT'S VENT SETTINGS ARE PS 5/12 PEEP, 40%, 15 RR. PT'S HR IS IN THE 50S, BP 118/62. NEURO STATUS REMAINS UNCHANGED, NO PURPOSEFUL MOVEMENTS, DID NOT PERFORM A SEDATION VACATION DUE TO VENT INTOLERANCE. TEMPERATURE DECREASED TO 97.7 VIA COOLING CATHETER. FIANCE REMAINED AT BEDSIDE ALL NIGHT. WILL CONTINUE TO MONITOR TO ONCOMING RN.
--- NOTE | 2021-08-28 09:49 | NUR ---
AM NOTE: ASSUMED CARE OF PT AT 0700. PT INTUBATED AND SEDATED COMFORTABLE WITH PRECEDEX RUNNING AT 0.07 MCG AND PROPOFOL AT 50 MCG/KG/MIN. PT'S HR IN THE 50'S, O2 95<, SBP BETWEEN 110-120, AND TEMP AT 97.5 THIS MORNING. PT APPEARS TO HAVE ORBITAL EDEMA DECREASED FROM YESTERDAY. AT 0730 AT BEDSIDE TO GIVE UPDATE TO PT'S FIANCETRINIDAD, REGARDING NEUROLOGICAL STATUS. AT 0900, AT BEDSIDE TO EVALUATE PT. PER PROVIDERS VERBAL ORDER, SEDATION WAS TURNED OFF. REQUESTED TO BE NOTIFIED WHEN SEDATION HAD WORN OFF OF THE PT, SO THAT HE MAY COME IN AND ASSESS NEUROLOGIC FUNCTIONING. WILL CONTINUE TO MONITOR THROUGHOUT THE DAY.
--- NOTE | 2021-08-28 10:58 | NUR ---
AM NOTE... ASSUMED CARE OF PT AT 0700 THE PT CONTINUES TO BE INTUBATED AND SEDATED WITH PROPOFOL AT 50MCG AND PRECEDEX AT 0.7MCG. THE PT IS UNRESPONSIVE TO ANY PAINFUL STIMULI. THE PT'S PUPILS ARE 2MM EQUAL AND REACTIVE. NO CHANGES TO THE VENT SETTINGS OF PS:5/12 AND 40% WITH O2 SATS >90%. L/S CLEAR IN THE UPPER LOBES AND DIM IN THE MID TO LOWER LOBES RR IS 18-20. OG TUBE PATENT AND RUNNING TUBE FEEDS AT GOAL WITH RESIDUAL OF 320MLS. 150MLS REINSTILLED ALONG WITH 110MLS OF MEDICATIONS AND FLUSHES. BT PRESENT AND HYPOACTIVE ABD MODERATE DISTENTION FIRM TO PALPATION. RECTAL TUBE IS PATENT AND DRAINING TO GRAVITY. THE PT'S TEMP LOZANO IS PATENT AND DRAINING TO GRAVITY WELL. THE PT'S TEMP AT THE START OF THIS SHIFT WAS 97.5 WITH COOLING CATH SET TO 97.5. THE COOLING CATH SITE IS STABLE WITH THE DRESSING C/D/I. AT 0915 DR. FORD AT THE BEDSIDE TO ASSES THE PT, PER DR. FORD THE PT'S SEDATION WAS STOPPED TO ASSESS HIS NEURO STATUS. ONCE THE PT'S SEDATION WAS STOPPED HIS TEMP AND BP STARTED TO CLIMB UP, CURRENTLY THE PT'S TEMP IS 99.5 WITH THE COOLING CATH SET AT 96.4. THE PT'S BP HAS ALSO CLIMBED UP TO SBPs IN THE 180'S. THE PT WAS GIVEN NEBULIZED LIDO TO HELP WITH THE COUGHING SPASMS. AT 1111 THE PT'S SEDATION HAS BEEN OFF FOR APROX 2 HOURS, THE PT DOES NOT RESPOND TO ANY PAINFUL STIMULI, HIS PUPILS ARE AT A 3, BRISK TO REACT HOWEVER THE HAS A FIXED DOWNWARD GAZE TO THE RIGHT. THE PT'S S.O. AND FAMILY AT THE BEDSIDE. WILL CONTINUE TO MONITOR.
--- NOTE | 2021-08-28 14:48 | NUR ---
AFTERNOON UPDATE: PT HAS BEEN OFF OF THESEDATIVE MEDICATIONS FOR THE MAJORITY OF THE DAY UNTIL 1430; PRECEDEX WAS RESTARTED AT 0.4 MCG/KG/HR AND THE PROPOFOL WAS RESTARTED AT 40 MCG/KG/MIN. THE PT HAD BECOME INCREASINGLY AGGITATED RELATED TO OVER STIMULIS OF INTERVENTIONS AND FAMILY PRESENT VISITING. THE PT WAS SIGNIFICANTLY BITING AND OCCLUDING THE ET TUBE. THE PT'S TEMPERATURE HAS BEEN INCREASING SINCE TAKING THE PT OFF OF THE SEDATIVES PEAKING AT 100.4. IMMEDIATE AND DISTANT FAMILY MEMBERS PRESENT DISCUSSING PLANS FOR FURTHER CARE OF THE PT. NEUROLOGICAL FUNCTION REMAINS UNCHANGED WITH NO PURPOSEFUL MOVEMENTS PRESENT. PT'S SBP WAS REACHING 190-200'S; PT MEDICATED PER EMAR. WHEN PT WAS AGGITATED, RR REACHED 28. WILL CONTINUE TO MONITOR.
--- NOTE | 2021-08-28 16:10 | NUR ---
Spiritual care visit conducted. Palliative Care RN Bella is talking with family about de-escalation of care. I follow the conversation by gathering with the family and re-emphasis, listening to what the pt's body is saying, the gravity of carrying out what the pt's stated wishes are and the importance of all being at peace in the decision making together. I then provide prayer for wisdom and strength. Lorie thanks me for the prayer and support.
--- NOTE | 2021-08-28 17:44 | NUR ---
SHIFT SUMMARY... THE PT'S SEDATION WAS RESTARTED AT 1530 D/T THE PT'S SEVERE COUGHING SPASMS AND AGGRESIVE CHEWING/BITING THE ET TUBE TO THE POINT IT WAS OCCLUDING. THE PT'S TEMP AND BP WERE ALSO ELEVATED WHILE THE SEDATION WAS OFF, THE PT'S BP WAS NOT RESPONDING WELL TO ANY ANTI-HYPERTENSIVE MEDICATIONS THAT WERE GIVEN. THE PT'S FAMILY WAS AT THE BEDSIDE T/O THIS SHIFT, THE PT'S FAMILY HAD A MEETING ABOUT CHANGING THE PT TO COMFORT CARE, ALL OF THE FAMILY PRESENT INCLUDING THE PT'S SON SHANDA STATED HE KNEW THE PT DID NOT WANT TO "SUFFER LIKE THIS." PALLIATIVE CARE RN AND PASTORIAL CARE WERE IN THE ROOM TO SPEAK WITH THE FAMILY AND PRAY WITH THEM. AFTER THE PT'S SEDATION WAS TURNED BACK ON THE COUGHING SPASMS SLOWLY STOPPED. THE PT'S TEMP AND BP ALSO STARTED IMPROVING. THE PT'S LOZANO IS PATENT AND DRAINING TO GRAVITY, THE PT'S RECTAL TUBE HAS BEEN BURPED TWICE THIS SHIFT D/T IT BEING FULL OF GAS, THE RECTAL TUBE HAS BEEN PATENT AND DRAINED 400MLS OF LIQUID BROWN STOOLS THIS SHIFT. THE PT CONTINUES TO BE UNREPONSIVE TO ANY PAINFUL STIMULI. WILL CONTINUE TO MONITOR UNTIL REPORT IS GIVEN TO ONCOMING RN.
--- NOTE | 2021-08-28 19:47 | NUR ---
ASSUMED CARE. REPORT RECEIVED FROM KAREN MONTELONGO. PT RESTING IN BED, SEDATED AND VENTILATED VIA ETT. VENT SETTINGS: SPONT TC, 80%SUPP, PEEP 5, Fi02 40%. OG TUBE IN PLACE, TF AT 20 ML/HR, VITAL HP. R/FEM CENTRAL LINE WITH COOLING CATH IN PLACE, CURRENT TEMP 98.6F. IV PUMPS SETTINGS: PRECEDEX 1.O MCG/KG/HR, PROPOFOL 50 MCG/KG/MIN, LR 100 ML/HR. LOZANO CATHETER IN PLACE. RECTAL TUBE IN PLACE. VS STABLE ATT, WILL CONTINUE TO MONITOR.
[2021-08-29 04:56] LABS: BASOPHILS ABSOLUTE AUTO 0.02 K/mm3 (0.00-0.23); BASOPHILS PERCENT AUTO 0 % (0-2); EOSINOPHILS ABSOLUTE AUTO 0.06 K/mm3 (0.00-0.68); EOSINOPHILS PERCENT AUTO 1 % (0-6); Hematocrit 35.9 % (37.0-53.0); Hemoglobin 11.9 g/dL (13.5-17.5); IMMATURE GRAN ABSOLUTE AUTO 0.15 K/mm3 (0.00-0.10); IMMATURE GRAN PERCENT AUTO 2 % (0-1); LYMPHOCYTES ABSOLUTE AUTO 1.02 K/mm3 (0.84-5.20); LYMPHOCYTES PERCENT AUTO 11 % (21-46); MONOCYTES PERCENT AUTO 8 % (4-13); Mean Corpuscular HGB 30.7 pg (26.0-34.0); Mean Corpuscular HGB Conc 33.1 g/dL (31.5-36.5); Mean Corpuscular Volume 93 fL (80-100); Mean Platelet Volume 10.4 fL (9.1-12.4); NEUTROPHILS ABSOLUTE AUTO 7.47 K/mm3 (1.96-9.15); NEUTROPHILS PERCENT AUTO 79 % (41-73); Platelet Count 188 K/mm3 (150-400); RDW Coefficient Variation 12.6 % (11.7-14.2); RDW Standard Deviation 42.7 fL (35.1-46.3); Red Blood Cell Count 3.87 M/mm3 (4.30-5.90); White Blood Cell Count 9.52 K/mm3 (4.00-11.30)
[2021-08-29 05:18] LABS: Anion Gap 3 mmol/L (6-16); Blood Urea Nitrogen 22 mg/dL (8-24); Bun/Creatinine Ratio 33.2 (12.0-20.0); CO2, Blood 33 mmol/L (21-32); Calcium, Blood 8.3 mg/dL (8.5-10.1); Chloride, Blood 108 mmol/L (98-108); Creatinine, Blood 0.66 mg/dL (0.60-1.20); Glomerular Filtration Rate >60 (60-); Glucose, Blood 174 mg/dL (70-99); Magnesium, Blood 2.1 mg/dL (1.6-2.4); Phosphorus, Blood 3.9 mg/dL (2.5-4.9); Potassium, Blood 4.1 mmol/L (3.5-5.5); Sodium, Blood 144 mmol/L (136-145)
--- NOTE | 2021-08-29 06:25 | NUR ---
SHIFT SUMMARY. PT CONTINUES IN BED, SEDATED AND VENTILATED. NO CHANGES TO VENT SETTINGS THIS SHIFT. OG TUBE IN PLACE, TF AT 25 ML/HR. R/FEM CENTRAL LINE W/COOLING CATH IN PLACE, TARGET TEMP 97.5. IV PUMPS RUNNING PRECEDEX AT 1 MCG/KG/HR, PROPOFOL AT 50 MCG/KG/MIN, LR AT 100 ML/HR. LOZANO CATHETER IN PLACE, 2300 OUT THIS SHIFT. RECTAL TUBE IN PLACE, 150 MLS OUT THIS SHIFT. VS STABLE THROUGHOUT SHIFT. NO CHANGE IN NEUROLOGICAL STATUS OBSERVED, SEE SHIFT ASSESSMENT FOR FURTHER DETAILS. WILL CONTINUE TO MONITOR AND REPORT OFF TO DAYSHIFT RN.
--- NOTE | 2021-08-29 08:30 | NUR ---
INITIAL ASSESSMENT PATIENT INTUBATED AND SEDATION TURNED OFF SHORT TIME AGO. PATIENT REMAINS UNRESPONSIVE. DOLLS EYES NOTED. SCLERA JAUNDICE AND EDEMATOUS. NO PAIN NOTED. LUNGS COARSE THROUGHOUT. PATIENT ON SPONTANEOUS PRESSURE SUPPORT 7, PEEP 12 AND 40% FIO2. PATIENT IN SB TO SR, HR 50S TO 70S. SBP 1-TEENS TO 140S. EDEMA NOTED. HYPOACTIVE BOWEL SOUNDS NOTED. TUBE FEED PLACED ON HOLD FOR RESIDUAL OF 370 MLS. RECTAL TUBE IN PLACE DRAINING BROWN, LIQUID STOOL. LOZANO DRAINING TIMMY COLORED URINE. LR AT 100 MLS/ HOUR. BED LOW. FAMILY AT BEDSIDE.
--- NOTE | 2021-08-29 09:41 | NUR ---
TOUCHED BASE WITH PALLIATIVE CARE.
--- NOTE | 2021-08-29 09:45 | NUR ---
I met with family and pt's mara Melo yesterday afternoon at bedside. I introduced myself and so did the family members I had not previously met. Both pt's mara and son were vocal about the patient's wishes, and how hard it is for them to "watch him suffer". They say they know for certain the patient would not approve of being on the ventilator, because the patient has discussed end of life preferences with his family multiple times. They also report the patient stated on many occasions that he knew he would not live a long life. While the family agrees on what pt's wishes are, they are still struggling with the actual planning of terminal withdrawal or changing pt's code status. I did ask if they knew what a terminal withdrawal would look like, and they did not, and wanted to know. I explained the steps and how it takes place. They all thanked me for the information, and were open to another visit again. Palliative will remain available.
--- NOTE | 2021-08-29 12:30 | NUR ---
HR 50S TO 60S. SBP 1-TEENS TO 120S. TF RESTARTED AT 25 MLS/ HOUR. RESIDUAL OF ZERO. PATIENT PLACED BACK ON SEDATION AFTER SEDATION VACATION THIS AM AT REQUEST OF FAMILY; FAMILY SAYING THAT THEY WANT PATIENT TO BE COMFORTABLE AND DON'T LIKE THAT HE KEEPS COUGHING. NO NEURO CHANGES NOTED IN PATIENT OFF OF SEDATION.
--- NOTE | 2021-08-29 12:52 | NUR ---
Spiritual care visit conducted. Pt's family and staff discuss the changing of pt's status to comfort measures only. A decision to withdraw care tomorrow seems to be the widely held concensus. I aid in that discussion then when just spouse, Lorie and I are left, I provide emotional/spiritual support and prayer. She responds well and shows signs of being comforted in that moment. I will continue to remain available to pt and family.
--- NOTE | 2021-08-29 16:30 | NUR ---
HR IN THE 50S. SBP 120S TO 140S. PATIENT REMAINS ON SAME VENT SETTINGS. TF RESIDUAL OF 205 MLS REINSTILLED. NO OTHER ACUTE CHANGES TO NOTE ON AT THIS TIME.
--- NOTE | 2021-08-29 18:59 | NUR ---
SHIFT SUMMARY PATIENT REMAINED UNRESPONSIVE. PATIENT HAD SEDATION VACATION THIS AM BUT NO CHANGES IN NEURO STATUS NOTED. DOLLS EYES NOTED. COOLING CATH REMAINS IN PLACE. NO SIGNS OF PAIN NOTED. LUNGS REMAINED COARSE. PATIENT REMAINED ON PS 7, PEEP 12 AND 40% FIO2. PATIENT REMAINED SB TO SR, HR 50S TO 90S. SBP RANGED FROM 1-TEENS TO 180S (HTN WHILE OFF SEDATION). RECTAL TUBE DRAINED 50 MLS STOOL THIS SHIFT. TF PLACED ON HOLD THIS AM FOR HIGH RESIDUAL BUT WAS ABLE TO BE RESTARTED AT NOON; INFUSING AT 25 MLS/ HOUR WITH 35 MLS/ HOUR GOAL RATE. LOZANO DRAINED 2645 MLS OF TIMMY COLORED URINE. NO CHANGES TO SKIN NOTED. PATIENT REPOSITIONED Q2H. LR AT 100 MLS/ HOUR, PROPOFOL AT 50 MCG/ KG/ MINUTE, PRECEDEX AT 1.0 MCG/ KG/ HOUR. BLOOD SUGARS RANGED FROM 120S TO 140S. FAMILY HAS BEEN IN AND OUT ALL DAY. REPORT HAS BEEN GIVEN TO ASSUMING ROSS FURNACE OPERATOR NURSE.
--- NOTE | 2021-08-30 06:42 | NUR ---
SHIFT SUMMARY. PT CONTINUES, VENTILATED VIA ETT. VENT SETTINGS REMAIN THE SAME. NO NEUROLOGICAL CHANGES NOTED THIS SHIFT. OG TUBE IN PLACE, VHP AT 25 ML/HR. R/FEM CENTRAL LINE WNL, PRECEDEX AT 1 MCG/KG/MIN, PROPOFOL AT 50 MCG/KG/MIN, LR AT 100 ML/HR. LOZANO CATHETER IN PLACE, 1550 MLS TIMMY URINE OUT THIS SHIFT. RECTAL TUBE IN PLACE. VS STABLE THROUGHOUT SHIFT, SEE SHIFT ASSESSMENT FOR FURTHER DETAILS. WILL CONTINUE TO MONITOR AND REPORT OFF TO DAYSHIFT RN.
--- NOTE | 2021-08-30 09:54 | NUR ---
Patient in intubated and sedated on propofol and precedex. He is non reactive to painful stimuli. His pupils are equal and reactive to light but sluggish pupil size 2 bilat. He is breathing 22 on vent with PS 7 Peep 12 with 40% FiO2. Family slowly coming into the room this morning. Donor line was reached out to and they contacted the family. Family has now decided to continue with plan to make patient comfort care. Awaiting Dr's orders. Spiritual Care is at bedside with Sig. Other who is having a dificult time.
--- NOTE | 2021-08-30 10:21 | NUR ---
Pt's family at bedside, they are ready for withdrawal of care. Ebenezer Orantes present, has been at bedside for support this morning. Palliative Care will remain available for emotional support, assist bedside RN as needed.
--- NOTE | 2021-08-30 11:36 | NUR ---
1030 PLAN TO EXTUBATE AND MAKE COMFORT CARE. COORDINATED WITH FAMILY, RT AND SPIRITUAL HEALTH AND PALLIATIVE CARE. PATIENT EXTUBATED WITH EASE. HE WAS GIVEN COMFORT CARE MEDICATION AND PRECEDEX AND PROPOFOL WAS STOPPED. PATIENT CONTINUES TO APPEAR COMFORTABLE TO STAFF AND FAMILY. SIG. OTHER CLIMBED INTO BED WTIH PATIENT HOLDING HIM. HIS OXYGENATION REMAINS AT 80% AND PULSE 60. LARGE FAMILY GROUP IS SITTING AROUND HIM IN THE ROOM.
--- NOTE | 2021-08-30 11:47 | NUR ---
Comfort Care: Pt was placed on comfort care this am. He was extubated, and family remains at bedside. Pt was premedicated prior to extubation for comfort. No s/s of distress noted. Palliative care will remain available.
--- NOTE | 2021-08-30 15:09 | NUR ---
AFTERNOON PROGRESS NOTE PATIENT IS EXTUBATED OF 1030 AM. HE HAS SLOWLY DROPPED HIS OXYGENATION NOW DOWN TO 55%. HE HAS MORE AGGITATED WITH HARD GRUNTING AND FLUID COMING UP FROM HIS MOUTH DESPITE ATROPINE SL AND ATIVAN AND DILAUDID IV. NOW GIVING SL MORPHINE WITH THE OTHER MEDICATIONS. FAMILY HAS BEEN IN AND OUT FREQUENTLY WITH LOTS OF YELLING/CUSSING AND FRUSTRATIONS HAVING TO SHARE TIME WITH PATIENT HE SLOWLY PASSESS AWAY. MICKEY Crocker PASTORAL CARE HAS BEEN CALLED TO BESIDE A COUPLE TIMES TO HELP WITH GRIEVING PROCESS. sTAFF CONTINUEING TO AIDE FAMILY AND CARE FOR PATIENT.
--- NOTE | 2021-08-30 18:11 | NUR ---
END OF SHIFT NOTE: MANNY HAS BEEN EXTUBATED SINCE 1029. HE HAS REMAINED AT AN OXYGENATION OF 55-65 % rr 22-26 AND PULSE HAS INCREASED TO 130'S THE DAY PROGRESSED. HE IS STILL NOT RESPONSIVE TO PAIN NOR DOSE HE HAVE A GAG BUT HE DOES COUGH AND BRING UP SECRETIONS. HE HAS ON A SCOPALAMINE PATCH TO RIGHT NAP OF NECK BEHIND RIGHT RIGHT AND HE HAS BEEN GETTING ATROPINE SL. HE CONTINUES TO GET DILAUDID PRECRIBED/ ATIVAN PERSCRIBED AND MORPHINE ALL IV. FAMILY HAS BEEN IN AND OUT OF THE ROOM ALL. SPIRITUAL CARE HAS BEEN VERY SUPPORTIVE OF FAMILYS GRIEVING PROCESS THAT AT TIMES HAS BEEN VOLITAL WITH YELLING AND CUSSING IN THE ROOM. WILL CONTINUE CARE DIRECTED.
--- NOTE | 2021-08-30 21:45 | NUR ---
TRANSFER TRANSFERRED TO ROOM 324 AT THIS TIME. FAMILY IS AWARE OF TRANSFER.
--- NOTE | 2021-08-30 22:14 | NUR ---
ASSUMED CARE ASSUMED CARE OF PATIENT. PT REMAINS UNRESPONSIVE. RA- SATS 50s. DOES NOT APPEAR TO BE IN ANY DISTRESS AT THIS TIME. FAMILY AT BEDSIDE.
--- NOTE | 2021-08-31 04:07 | NUR ---
SHIFT SUMMARY: PT TRANSFERRED FROM ICU. FAMILY IN THE ROOM THROUGHOUT THE NIGHT. PT HAS INCREASED SECRETIONS, SCOPALAMINE PATCH IN PLACE AND ATROPINE DROPS GIVEN. SUCTION SET UP AT BEDSIDE AND PERFORMED MULTIPLE TIMES. PT SHOWS NO S/S FOR PAIN, NAUSEA, VOMITING, OR SOB. LOZANO AND RECTAL TUBE IN PLACE, PATENT AND DRAINING. BED IN LOW POSITION, CALL LIGHT WITHIN REACH. WILL CONTINUE TO MONITOR.
--- NOTE | 2021-08-31 07:11 | NUR ---
Check in on patient, patient's family are present in the rm but sleeping. I will return to see if I can offer continued support.
--- NOTE | 2021-08-31 14:11 | NUR ---
Assessed pt at 1030am today, with multiple family members at bedside. He does not appear to be in any distress. He continues to cough occasionally, with bedside RN suctioning secretions for comfort. Family appears to be handling the situation well.
--- NOTE | 2021-08-31 18:37 | NUR ---
END OF SHIFT SUMMARY Pt resting all shift, pt does not arouse to voice/touch. Moderate secretions, attempted oral suction, pt will bite down on yankeuer, gave PO gtts, scopalmine patch in place. Morphine IV given PRN to control pain/air hunger. Rectal tube/carrizales in place, draining well. Pt warm to the touch, cooled patch with washclothes & fan. Family at bedside.
--- NOTE | 2021-08-31 20:19 | NUR ---
Patient assessed. Discussed care with family. Son, iTmbo, present. Discussed medicationsand secretions
--- NOTE | 2021-09-01 03:51 | NUR ---
Patient on comfort care. Son in room with patient. Patient restless at times. Morphine and Ativan given. SEE MAR. Rectal tube and Maki catheter patent. All family questions and concerns addressed.
--- NOTE | 2021-09-01 08:36 | NUR ---
Spiritual care visit conducted. After several visits with family yesterday, I continued support today beginning at 0710 bringing pt's sons, Jas and Emma perez and spending time providing gentle encouragement and pet adoption counselor. They don't always have clear moments so I begin early after they first wake up to hopefully aid them as they face yet another day of slowly watching their father . They both show signs of being comforted. I will continue to remain available.
--- NOTE | 2021-09-01 11:25 | NUR ---
Patient in rm alone, I pray for patient in the quiet while family steps out. I pray for peace, God's presence and to be guided in his transition. Pt opens eyes for my words, closes them for the prayer and opens them at the end of the prayer. I will continue to remain available to patient and family.
--- NOTE | 2021-09-01 18:42 | NUR ---
END OF SHIFT SUMMARY Pt appeared restless this morning, PRN MS/Dilaudid given, ineffective. Pt appears to be having episodes of decorticate posturing. Consulted Palliatative care RN, this RN recommended medicating with ativan and oral roxinal to control spasms. Pt had another big episode, called MD and received order for Ativan Q1H, gave PRN and patient has been resting comfortably the last few hours. Family at bedside w/ pt.
--- NOTE | 2021-09-01 22:53 | NUR ---
Patient turned linen changed. Bathed. Catheter and rectal tube care performed. Stat lock replaced.
--- NOTE | 2021-09-01 22:54 | NUR ---
Patient turned, bathed, Catheter and rectal tube care given. Linen changed
--- NOTE | 2021-09-02 03:52 | NUR ---
Reviewed patient status with day shift RN. Patient with Orders to give increases ativan due to decorticate movements. Patient given increased amounts of ativan over night along with hydromorphone. No decorticate movements seen overnight. Patient appears comfortable. Rectal tube and Maik in place and patent. Maki output appears much thicker and darker tonight. Patient's 2 sons present in room overnight.
--- NOTE | 2021-09-02 06:06 | NUR ---
Patient repostioned, suctioned, and medicated. Maki bag emptied. Patient tolerated well.
--- NOTE | 2021-09-02 08:00 | NUR ---
Pt resting in bed, is diaphoretic, moving arms a bit, not tracking at all, has an occ cough, family in room. no further needs at this time. call light in reach.
--- NOTE | 2021-09-02 10:07 | NUR ---
pt moving around in bed more, making straining noises, and is sweating, cleaned up and 2mg ativan given, calmed him. resting quietly now. comfort care ordered, call light in reach.
--- NOTE | 2021-09-02 11:04 | NUR ---
Pt having more eye opening. more edema noted and seccretions. extremeities tight but no posturing noted. Review of medications and seizure potential with nusing.
--- NOTE | 2021-09-02 18:59 | NUR ---
pt became agitated this afternoon, he recieved ativan every hr for a time along with jaime and blanca, settled this afternoon, family at bedside. has been turned throughout the day, no further changes, appears calm at this time. call light in reach.
--- NOTE | 2021-09-02 20:49 | NUR ---
COMFORT STATUS COOL DAMP CLOTHS APPLIED TO PT'S CHEST AND FOREHEAD. PT MEDICATED FOR ANXIETY. REPOSITIONED. PT DOES NOT SHOW S/SX OF PAIN AT THIS TIME
--- NOTE | 2021-09-02 20:59 | NUR ---
COMFORT CARE WARM TO TOUCH, COOL DAMP CLOTHS APPLIED TO FOREHEAD. ICE PACK TO CHEST. PT MEDICATED FOR ANXIETY. NO S/SX OF PAIN AT THIS TIME
--- NOTE | 2021-09-03 04:40 | NUR ---
SHIFT SUMMARY ADMITTED FOR VFIB ARREST. DNR CODE. COMFORT CARE. RECTAL TUBE AND LOZANO IN PLACE. Q2 TURNS. PAIN AND ANXIETY MEDICATION GIVEN THIS SHIFT. PT IS NONVERBAL. PT DOES MOAN WHEN SEEMINGLY ANXIOUS OR IN PAIN. TWO SONS IN ROOM WITH PT THROUGHOUT SHIFT. EYES ARE JAUNDICED.
--- NOTE | 2021-09-03 08:00 | NUR ---
pt moved around in bed, got him repositioned, family asleep in room. pt looks comfortable, is looking around room a bit, but not tracking, doesn't sound as wet as yesterday. call light in reach.
--- NOTE | 2021-09-03 16:41 | NUR ---
pt recieved a bedbath, linen change, medicated with 1mg dilaudid, pt is peaceful at this time. did cough when being moved, but relaxed once positioned on his side. call light in reach.
--- NOTE | 2021-09-03 18:09 | NUR ---
pt has been calm today, have been alternating ativan and dilaudid, family at bedside, no acute changes. call light in reach.
--- NOTE | 2021-09-03 20:27 | NUR ---
Multiple visit today to review with nursing and and family. Pt breathing has changed this afternoon, His body temperature is fluctuating more. Will reevlauate in the morning.
--- NOTE | 2021-09-04 05:54 | NUR ---
SHIFT SUMMARY PATIENT RESTED COMFORTABLY THROUGHOUT THE NIGHT, MEDICATED WITH PRN ATIVAN AND DILAUDID FOR COMFORT, FREQUENT ORAL CARE AND SUCTION PROVIDED, PRN MEDICATION ALSO ADMINISTERED TO HELP WITH SECRETIONS, LOZANO CATHETER CONTINUES TO DRAIN DARK YELLOW URINE, PATIENT WILL AT TIMES OPEN HIS EYES TO VERBAL STIMULI BUT DOES NOT TRACK, FAMILY AT THE BEDSIDE THROUGHOUT THE NIGHT
--- NOTE | 2021-09-04 08:00 | NUR ---
PT RESTING IN BED WITH EYES OPEN, SONS IN ROOM SLEEPING. PT LOOKS AT RN WHEN SPOKEN TOO. PT UNABLE TO FOLLOW DIRECTIONS OR RESPOND, PT DID BEGIN CRYING AND WAS MEDICATED AT THIS TIME FOR COMFORT. ORAL CARE PROVIDED AND PT REPOSTITIONED FOR COMFORT. DISCUSSED MEDICATION MGMT WITH SONS AND INSTRUCTED THE FAMILY TO CALL FOR ANY S/S OF DISCOMFORT.
--- NOTE | 2021-09-04 08:24 | NUR ---
Pt resting in bed with his eyes closed. Mild dyspnea noted as evidenced by work of breathing. Family sleeping at bedside. Spoke with Primary RN Jearmy and reviewed comfort medications. Palliative Care will remain available.
--- NOTE | 2021-09-04 11:33 | NUR ---
FAMILY AT BEDSIDE, PT CRYING OUT, PT REPOSITIONED FOR COMFORT. ORAL CARE PROVIDED AND CLEANED PT'S FACE WITH COOL WASHCLOTH. DISCUSSED PERSONAL CARE AND ORAL CARE WITH FAMILY. FAMILY WOULD LIKE TO BE INVOLDED IN PROVIDING CARE. PT MEDICATED FOR COMFORT.
--- NOTE | 2021-09-04 12:00 | NUR ---
PT GIRLFRIEND AT BEDSIDE, PT APPEARS COMFORTABLE. S.O. AKSED PT IF HE WANTED TO COME HOME WITH HER AND HE VERBALLIZED YES. PT HAS HAD NO OTHER VERBAL RESPONSES THAT THIS RN IS AWARE OF. S.O. PROVIDED ORAL CARE FOR PT AND ASSISTED RN WITH POSITIONING PT FOR COMFORT.
--- NOTE | 2021-09-04 14:38 | NUR ---
Spiritual care visit conducted. I visit with pt's Lorie terry. She explains about the family unit complications and concerns over where pt would going for a hospice d/c. She is tearful as she shares about the family dynamics and how they are treating her and how they are fighting over the dying pt's material items. I normalize her concerns and provide gentle debt counselor and emotional support. She responds well and voices apprecaition for the visit. I will continue to remain available to patient and family.
--- NOTE | 2021-09-04 14:48 | NUR ---
PT RESTING WITH EYES CLOSED, NO S/S OF DISTRESS. PT'S SON AND FRIEND AT BEDSIDE. CONCERNS REGARDING D/C PLANS DISCUSSED. FAMILY CONFLICTS REGARDING D/C LOCATION EXPRESSED. ETHICS CONSULT INITIATED TO ASSIST WITH COMPLEX FAMILY/SOCIAL DYNAMICS AND D/C PLANNING.
--- NOTE | 2021-09-04 15:06 | NUR ---
Multiple family meetings about hospice plan of care and discourse between the family. Pt having periods of reponsiveness and verbalization. No signs of posturing today. His temperature reamins laibile. Hospice referal for pt updated ellis of his mental status. Pt hisgh risk of emolic event. lungsr remain coarse. pt flushed. review with employment case manager where they will do hospice. She will update ellis of the difficulties of family dynamics. will request [facility] LEATHER CURRIER come see him concern for seizure activity during trasport.
--- NOTE | 2021-09-04 16:00 | NUR ---
PT RESTING WITH EYES CLOSED, NO S/S OF DISCOMFORT. NO FAMILY PRESENT AT THIS TIME, ORAL CARE PROVIDED AND PT POSITIONED FOR COMFORT. AFTER CARE PROVDED PT DID MOANING AND GRIMACING AND MEDICATION ADMINISTERED PER EMAR.
--- NOTE | 2021-09-04 18:00 | NUR ---
SHIFT SUMMARY 46 Y MALE ADMITTED WITH CARDIAC ARREST CURRENTLY ON COMFORT CARE. PT HAS HAD FRIENDS AND FAMILY VISITING T/O DAY TODAY. D/C PLANS SET FOR TOMORROW WITH A 10:30AM TRANSPORT METAL SPRAY OPERATOR AND [facility] SCHEDULED TO ADMIT AT 11AM. PT IS PLANNED TO D/C BACK TO HIS HOME WITH HIS GIRLFRIEND. THER HAS BEEN SOME DISAGREEMENT REGARDING D/C PLANS. ETHICS CONSULT WAS INITATED THIS AFTERNOON TO ASSIST WITH PLANNING. NO OTHER CHANGES TO REPORT THIS SHIFT.
--- NOTE | 2021-09-05 05:11 | NUR ---
SHIFT SUMMARY PATIENT RESTED THROUGHOUT THE NIGHT, PRN DILAUDID AND ATIVAN ADMINISTERED FOR COMFORT, SPOUSE AT THE BEDSIDE THROUGHOUT THE SHIFT, PATIENT CONTINUES TO TRACK OCCASSIONALY, NON VERBAL, LOZANO CATHETER REMAINS IN PLACE, CENTRAL LINE TO RIGHT GROIN, PRN MEDICATION ALSO ADMINISTERED TO MANAGE SECRETIONS, FAMILY EDUCATED ABOUT CARE AND QUESTUIONS ANSWERED TO THEIR SATISFACTION
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
--- NOTE | 2021-09-05 09:18 | NUR ---
PT RESTING IN BED, EYES ARE OPEN BUT PT IS UNRESPONSIVE. ORAL CARE COMPLETED AND PT REPOSITIONED WITH NO RESPONSES EXCEPT PT CLAMPED MOUTH OVER TOOTHETTE. PT UNABLE TO FOLLOW COMMANDS AT THIS TIME. PUPILS ARE FIXED WITH DOLL EYES. MAI ABDI PRESENT. DISCUSSED DC PLAN AND SHE STILL WANTS MANNY TO TX TO THEIR HOME WITH HOSPICE CARE. SHE REPORTS HOSPITAL BED IS IN PLACE AND SHE HAS HOME READY FOR HIS RETURN. [facility] TO MEET HER AT HER HOME AT 11 AM. PT APPEARS TO BE COMFORTABLE AT THIS TIME. PAINAD IS 0/10.
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
--- NOTE | 2021-09-05 10:46 | NUR ---
PT BATHED AND ATTENDS CHANGE COMPLETED. CATH CARE COMPLETED. PT GIVEN ROXANOL AND ATIVAN ORALLY FOR COMFORT CARE FOR TRANSPORT HOME. PT TOLERATED WELL. PT CENTRAL LINE TAKEN OUT FROM [facility] BY JASON TRIMBLE RN. NO S/S OF INFECTION AT SITE. MAI EDUCATED ON MEDICATION REGIMEN, CATH CARE, ORAL CARE. MAI NANCE. PACKED UP [facility] TO SEND WITH TRANSFER [facility].
--- NOTE | 2021-09-05 11:32 | NUR ---
DISCHARGE SUMMARY: PT DISCHARGED TO HOME WITH HOSPICE REFERRAL. PT TX VIA GURNEY WITH [facility]. [facility] SENT WITH PT. PAINAD AT TIME OF DISCHARGE WAS 0/10. RR E/U, PT NON RESPONSIVE. MAI ABDI NOTIFIED OF HIS TIME LEAVING HOSPITAL SHE HAD REQUESTED. HAD TO LEAVE A MESSAGE ON HER PHONE.
== END 2021-09-05 11:15 | disposition hospice, home (50) | DRG 207 ==
LOC: ER 16:22 → ICUE 19:36 → ICUW 20:00 → ICUE 20:05 → MEDS 08-30 21:46
PROVIDERS: Emergency Medicine; Family Medicine; Internal Medicine Critical Care Medicine; Nurse Practitioner Acute Care; ADMIT Internal Medicine
PROC: 0BH18EZ Insertion of Endotracheal Airway into Trachea, Via Natural or Artificial Opening Endoscopic (ICD-10-PCS; principal; 2021-08-19)
PROC: 5A1955Z Respiratory Ventilation, Greater than 96 Consecutive Hours (ICD-10-PCS; 2021-08-19)
PROC: 03HY32Z Insertion of Monitoring Device into Upper Artery, Percutaneous Approach (ICD-10-PCS; 2021-08-19)
PROC: 4A133B1 Monitoring of Arterial Pressure, Peripheral, Percutaneous Approach (ICD-10-PCS; 2021-08-19)
PROC: 4A133J1 Monitoring of Arterial Pulse, Peripheral, Percutaneous Approach (ICD-10-PCS; 2021-08-19)
DX: J96.01 Acute respiratory failure with hypoxia (principal); I49.01 Ventricular fibrillation; I46.9 Cardiac arrest, cause unspecified; R65.10 Systemic inflammatory response syndrome (SIRS) of non-infectious origin without acute organ dysfunction; N17.9 Acute kidney failure, unspecified; G93.1 Anoxic brain damage, not elsewhere classified; Z66 Do not resuscitate; Z51.5 Encounter for palliative care; J98.01 Acute bronchospasm; I25.10 Atherosclerotic heart disease of native coronary artery without angina pectoris; I10 Essential (primary) hypertension; I25.2 Old myocardial infarction; Z68.32 Body mass index [BMI] 32.0-32.9, adult; E11.9 Type 2 diabetes mellitus without complications; G47.33 Obstructive sleep apnea (adult) (pediatric); Z78.1 Physical restraint status; J44.9 Chronic obstructive pulmonary disease, unspecified; F15.10 Other stimulant abuse, uncomplicated; E66.9 Obesity, unspecified; E78.5 Hyperlipidemia, unspecified; K21.9 Gastro-esophageal reflux disease without esophagitis; F17.210 Nicotine dependence, cigarettes, uncomplicated; Z79.82 Long term (current) use of aspirin; Z95.5 Presence of coronary angioplasty implant and graft; Z79.02 Long term (current) use of antithrombotics/antiplatelets; Z79.01 Long term (current) use of anticoagulants; Z79.899 Other long term (current) drug therapy; Z79.84 Long term (current) use of oral hypoglycemic drugs
CPT/HCPCS: 31500; 31720; 36415; 36600; 36620; 51702; 70450; 71045; 80047; 80048; 80053; 80176; 81001; 82330; 82550; 82803; 82947; 83605; 83735; 83880; 84100; 84145; 84484; 85014; 85025; 85610; 85730; 87040; 87070; 87077; 87186; 87205; 93005; 93010; 93306; 94002; 94003; 94640; 94664; 94760; 94762; 95819; 96365-59; 96375-59; 96376-59; 99291-25; A9270; C9113; J0282; J0360; J0610; J0696; J1170; J1630; J1650; J1953; J2001; J2060; J2250; J2270; J2370; J2704; J2920; J2930; J3010; J3475; J3480; J7030; J7040; J7050; J7060; J7120